=== PATIENT | male | born 1960 | race Caucasian/White ===

== ENCOUNTER 2025-10-10 14:29 | Outpatient (AMB) | payer OTHER, SELFPAY ==
--- NOTE | 2025-10-10 14:35 | MHC.OFFVIS ---
Vital Signs 10/10/25 14:44 Height 5 ft 7 in Weight 125 lb BMI 19.6 BP 169/93 H Blood Pressure Location Lt brachial Position Sitting Pulse 97 Intake Visit Reasons: residual hemorrhoidal skin tags. Intake Note: Patient presents for an assessment for residual hemorrhoidal skin tags. Pt c/o; Reports occasional rectal bleeding, reports no constipation, Hx bladder surgery, he has had x2 colonoscopy in the past in [place]. Manufacturer'S Representative Required: No Accompanied by: Self / Same As Patient Allergies BAND-AID Allergy (Severe, Uncoded 10/10/25 14:46) Unknown HPI HPI residual hemorrhoidal skin tags.: Details: 64-year-old male referred for hemorrhoids. He says that he has had hemorrhoids for about a year. He describes bleeding with this as as well as episodes of pain and discomfort. He says that his hemorrhoids also cause some significant itching. He says he does not feel that he is constipated. He also has a history of BPH. He is a long-time smoker. [facility] Medical History (Updated 10/10/25 @ 14:50 by Juan Jacobsen MD) Internal and external bleeding hemorrhoids Surgical History (Updated 10/10/25 @ 14:47 by IMTIAZ Copeland) History of colonoscopy History of transurethral resection of prostate Social History Alcohol intake: current Alcohol intake frequency: holidays/special occasions only Patient Tobacco Use Status: Current everyday Tobacco user Tobacco use type: Cigarette Cigarette Packs Per Day: 0.5 Review of Systems Const Denies chills and Denies fever(s) Card Denies chest pain, Denies dyspnea and Denies dyspnea on exertion Resp Denies cough, Denies dyspnea and Denies dyspnea on exertion GI Denies hematochezia and Denies change in bowel habits Denies hematuria and Denies difficulty urinating Musc Denies back pain and Denies limited range of motion Neuro Denies focal weakness and Denies convulsions Psych Denies depression and Denies mood swings Physical Exam Const General: comfortable and no acute distress Orientation/consciousness: patient oriented x3 Neck Neck: Yes no lymphadenopathy Resp Auscultation: clear to auscultation bilaterally Cardio Rhythm: regular rhythm GI Other: Rectal exam shows a large external hemorrhoid on the left posterior, no other perianal lesions Palpation (GI): Soft to palpation, nontender and no guarding Neuro General: patient oriented x3 Office Procedures Anoscopy He was in kneeling renetta-knife position. The anoscope was gently inserted. A full examination of the anal canal was done. Was note of a large internal external hemorrhoidal column on the left posterior. There were no other lesions seen. There was no fissure ulceration. There was no induration on digital exam. There was no bleeding. [id number] Assessment & Plan Assessment & Plan (1) Internal and external bleeding hemorrhoids: Code(s): K64.4 - Residual hemorrhoidal skin tags; K64.8 - Other hemorrhoids Category: Medical Plan: He has this large column of internal and external hemorrhoids as described above. He says he has bleeding and swelling and discomfort with this. I explained to him the option of proceeding with the appendectomy. I discussed the technique of this procedure. I reviewed the risks including but not limited to bleeding, infections, postop pain, poor healing, as well as the benefits and alternatives. I reviewed with him what to expect postoperatively. He says that he would like to take care of his BPH for now. He says that he will come back to the office once he is considering hemorrhoid surgery. I sent him a prescription for Calmoseptine to help with this itching in the meantime. Medications: New menthol-zinc oxide 0.44-20.6 % (Calmoseptine) 1 appl topical TID PRN 113 grams 0RF Hemorrhoid irritation and itching Coding Level of Care Code New Pt Level 3 (97606) Diagnoses Internal and external bleeding hemorrhoids K64.4; K64.8 CPT Codes Details - CPT: 96974-[id number] ([id number])
[2025-10-10 14:44] VITALS: BP 169/93; PULSE 97; BMI 19.6
--- OUTSIDE RECORDS SUMMARY | 2025-10-10 19:25 | XMS_ITS ---
BLOOD COUNT AUTO DIFF monocytes absolute auto 0.71 K/uL 0.4-1. 3 normal Not Available [facility] [address] [place] [address], [address], 07/30/2023 17:16:34 07/30/20 23 07/30/2023 COMPL ETE BLOOD COUNT AUTO DIFF eosinophils absolute auto 0.32 K/uL 0.0-0. 8 normal Not Available [facility] [address] [place] [address], [address], 07/30/2023 17:16:34 07/30/20 23 07/30/2023 COMPL ETE BLOOD COUNT AUTO DIFF basophils absolute auto 0.04 K/uL 0.0-0. 6 normal Not Available [facility] [address] [place] [address], [address], 07/30/2023 17:16:34 07/30/20 23 07/30/2023 VITAM IN B12 AND FOLAT E vitamin B12 600 pg/mL 232-12 45 normal Not Available [facility] [address] [place] [address], [address], 07/30/2023 17:52:26 07/30/20 23 07/30/2023 VITAM IN B12 AND FOLAT E folate 15.0 NG/mL 4.8-18 .8 normal Not Available [facility] [address] [place] [address], [address], 07/30/2023 17:52:26 07/30/20 23 07/30/2023 COMPR EHENS DREW MET. PANEL sodium 142 mmol/ L 136-14 5 normal Not Available [facility] [address] [place] [address], [address], 07/30/2023 17:52:28 07/30/20 23 07/30/2023 COMPR EHENS DREW MET. PANEL potassium 4.4 mmol/ L 3.5-5. 1 normal Not Available [facility] [address] [place] [address], [address], 07/30/2023 17:52:28 10/0607/30/2023 COMPR EHENS DREW MET. PANEL chloride 103 mmol/ L 98-107 normal Not Available [facility] [address] [place], [address], 07/30/2023 17:52:28 07/30/20 23 07/30/2023 COMPR EHENS DREW MET. PANEL carbon dioxide 27.0 mmol/ L 22-29 normal Not Available [facility] [address] [place], [address], 07/30/2023 17:52:28 07/30/20 23 07/30/2023 COMPR EHENS DREW MET. PANEL anion gap 16 mmol/ L 10-20 normal Not Available [facility] [address] [place], [address], 07/30/2023 17:52:28 07/30/20 23 07/30/2023 COMPR EHENS DREW MET. PANEL blood urea nitrogen 15 mg/dL 8-23 normal Not Available [facility] [address] [place], [address], 07/30/2023 17:52:28 07/30/20 23 07/30/2023 COMPR EHENS DREW MET. PANEL creatinine 1.11 mg/dL 0.70-1 .2 normal Not Available [facility] [address] [place], [address], 07/30/2023 17:52:28 07/30/20 23 07/30/2023 COMPR EHENS DREW MET. PANEL estimated glomerular filt rate 74 GFR Value : mL/mi n/1.7 3 squar e meter s Calcu latio n: CKD-E PI Creat inine Equat ion (2020 ) Chron ic Kidkenneth y Disea se is defin ed as eithe r of the follo wing prese nt for >= 3 month s: - GFR less than 60 mL/mi n/1.7 3 squar e meter s. - Micro album in:Ur . Creat inine Ratio >= 30 mg/g or other marke rs of trell mederos e Kidkenneth y failu re is less than 15 mL/mi n/1.7 3 squar e meter s This test is not perfo rmed in patie nts under the age of 18. Not Available [facility] [address] [place], [address], 07/30/2023 17:52:28 07/30/20 23 07/30/2023 COMPR EHENS DREW MET. PANEL glucose 73 mg/dL 82-115 low Not Available [facility] [address] [place], [address], 07/30/2023 17:52:28 07/30/20 23 07/30/2023 COMPR EHENS DREW MET. PANEL calcium 10.2 mg/dL 8.8-10 .2 normal Not Available [facility] [address] [place], [address], 07/30/2023 17:52:28 07/30/20 23 07/30/2023 COMPR EHENS DREW MET. PANEL bilirubin total 0.3 mg/dL 0.2-1. 2 normal Not Available [facility] [address] [place], [address], 07/30/2023 17:52:28 07/30/20 23 07/30/2023 COMPR EHENS DREW MET. PANEL aspartate amino transferase 19 U/L 5-40 normal Not Available [facility] [address] [place], [address], 07/30/2023 17:52:28 07/30/20 23 07/30/2023 COMPR EHENS DREW MET. PANEL alanine aminotransfe rase 14 U/L 5-41 normal Not Available [facility] [address] [place], [address], 07/30/2023 17:52:28 07/30/20 23 07/30/2023 COMPR EHENS DREW MET. PANEL total protein 7.1 g/dL 6.4-8. 3 normal Not Available [facility] [address] [place], [address], 07/30/2023 17:52:28 07/30/20 23 07/30/2023 COMPR EHENS DREW MET. PANEL albumin level 4.6 g/dL 3.5-5. 2 normal Not Available [facility] [address] [place], [address], 07/30/2023 17:52:28 07/30/20 23 07/30/2023 COMPR EHENS DREW MET. PANEL globulin 2.5 gm/dL 2.0-3. 5 normal Not Available [facility] [address] [facility] [place], [address], 07/30/2023 17:52:28 07/30/2007/30/2023 COMPR EHENS DREW MET. PANEL albumin globulin ratio 1.8 % 1.1-2. 5 normal Not Available [facility] [address] [place], [address], 07/30/2023 17:52:28 07/30/20 23 07/30/2023 COMPR EHENS DREW MET. PANEL alkaline phosphatase 105 U/L 40-129 normal Not Available [facility] [address] [place], [address], 07/30/2023 17:52:28 07/30/20 23 07/30/2023 MAGNE SIUM magnesium 2.17 mg/dL 1.6-2. 4 normal Not Available [facility] [address] [place], [address], 07/30/2023 17:52:28 07/30/2007/30/2023 IRON PROFI LE iron 122.3 ug/dL 59-158 normal Not Available [facility] [address] [place], [address], 07/30/2023 17:52:29 07/30/2007/30/2023 IRON PROFI LE total iron binding capacity 360.0 ug/dL 250-45 0 normal Not Available [facility] [address] [place], [address], 07/30/2023 17:52:29 07/30/20 23 07/30/2023 IRON PROFI LE transferrin 252 mg/dL 200-36 0 normal Not Available [facility] [address] [place] [address], [address], 07/30/2023 17:52:29 07/30/20 23 07/30/2023 IRON PROFI LE transferrin percent saturation 34 % 20-50 normal Not Available [facility] [address] [place], [address], 07/30/2023 17:52:29 07/30/20 23 07/30/2023 TSH REFLE X FREE T4 TSH reflex free T4 0.48 uIU/m L 0.27-4 .20 normal Not Available [facility] [address] [place] [address], [address], 07/30/2023 17:52:29 07/30/20 23 07/30/2023 VITAM IN D 25-OH TOTAL vitamin D 25-oh total 80.5 NG/mL Refer ence Range : Defic ient <20 ng/mL Insuf ficie nt 21-29 ng/mL Suffi cient >30 ng/mL Not Available [facility] [address] [place] [address], [address], 07/30/2023 17:54:02 07/30/20 23 07/31/2023 LYME DIS TOTAL AB W/ REFLE X lyme total antibody meaghan Negati ve negati ve Lyme antib odies not detec yehuda. Refle x testi ng is not indic ated. No labor atory evide nce of infec tion with B. burgd orfer i (Lyme disea se). Negat drew resul ts may occur in patie nts recen tly infec yehuda (less than or equal to 14 days) with B. burgd orfer i. If recen t infec tion is suspe cted, repea t testi ng on a new sampl e colle cted in 7 to 14 days is recom bhavik Bender rmed at: 01 - [facility] [place] [address], [place] [address] Lab Direc tor: Serena Cruz MD, Phone : [phone] Not Available [facility] [address] [facility], [place], [address], 07/31/2023 12:08:24 07/30/20 23 07/30/2023 URINE CULTU RE results ----- ----- ----- ----- ----- ----- ----- ----- ----- ----- ----- ----- ----- ----- ----- ----- ----- ----- -- RUN DATE: 08/01 Katie hester *Live * - LAB PAGE 1 RUN TIME: 658 Speci men Inqui ry ----- ----- ----- ----- ----- ----- ----- ----- ----- ----- ----- ----- ----- ----- ----- ----- ----- ----- -- PATIE NT: Chelsey Souza ACCT: [id number] LOC: .DO Martinez U: [id number] AGE/S X: 62/M ROOM: RE07/[address]: Nury Colon : 11/26 BED: DIS: STATU S: PRE CLI TLOC: ----- ----- ----- ----- ----- ----- ----- ----- ----- ----- ----- ----- ----- ----- ----- ----- ----- ----- -- SPEC #: [id number] CAIT: 07/30-1 340 STATU S: COMP REQ #: [id number] RECD: 07/30- [address]: Nury Colon [facility] E: Patrick oreilly ENTR: 07/[address]: LEIF C: ORDER ED: Urine Cultu re ACT WKST: CULT 08/01 #1 ----- ----- ----- ----- ----- ----- ----- ----- ----- ----- ----- ----- ----- ----- ----- ----- ----- ----- -- Proce dure Resul t ----- ----- ----- ----- ----- ----- ----- ----- ----- ----- ----- ----- ----- ----- ----- ----- ----- ----- -- Urine Cultu re Final Colon y Count : <1,00 0 col/m L No Growt h ----- ----- ----- ----- ----- ----- ----- ----- ----- ----- ----- ----- ----- ----- ----- ----- ----- ----- -- END OF REPOR T Not Available [facility] [address] [place], [address], 08/01/2023 06:59:14 07/30/2007/30/2023 urina lysis , dipst ick Leukocytes Negati ve Not Available [facility] [address] [facility], [place], [address], 07/30/2023 09:19:09 07/30/2007/30/2023 urina lysis , dipst ick Nitrite negati ve Not Available [address] [place], [address], 07/30/2023 09:19:09 07/30/2007/30/2023 urina lysis , dipst ick Urobilinogen 0.2 Not Available Andriy maynard [address] [place], [address], 07/30/2023 09:19:09 07/30/2007/30/2023 urina lysis , dipst ick Protein Negati ve Not Available [address] [place], [address], 07/30/2023 09:19:09 07/30/2007/30/2023 urina lysis , dipst ick pH 5.0 Not Available [address] [place], [address], 07/30/2023 09:19:09 07/30/2007/30/2023 urina lysis , dipst ick Blood Negati ve Not Available [address] [place], [address], 07/30/2023 09:19:09 07/30/2007/30/2023 urina lysis , dipst ick Specific [place] 1.015 Not Available Genetar radha [address] [place], [address], 07/30/2023 09:19:09 07/30/2007/30/2023 urina lysis , dipst ick Ketone Negati ve Not Available [address] [place], [address], 07/30/2023 09:19:09 07/30/2007/30/2023 urina lysis , dipst ick Bilirubin Negati ve Not Available [address] [place], [address], 07/30/2023 09:19:09 07/30/20 23 07/30/2023 urina lysis , dipst ick Glucose Negati ve Not Available [address], [place], [address], 07/30/2023 09:19:09 01/27/20 24 01/27/2024 COMPR EHENS DREW MET. PANEL sodium 139 mmol/ L 136-14 5 normal Not Available [facility] [address] [place], [address], 01/27/2024 17:01:21 01/27/20 24 01/27/2024 COMPR EHENS DREW MET. PANEL potassium 4.59 mmol/ L 3.5-5. 1 normal Not Available [facility] [address] [place], [address], 01/27/2024 17:01:21 01/27/20 24 01/27/2024 COMPR EHENS DREW MET. PANEL chloride 100 mmol/ L 98-107 normal Not Available [facility] [address] [place], [address], 01/27/2024 17:01:21 01/27/20 24 01/27/2024 COMPR EHENS DREW MET. PANEL carbon dioxide 29 mmol/ L 22-29 normal Not Available [facility] [address] [place], [address], 01/27/2024 17:01:21 01/27/20 24 01/27/2024 COMPR EHENS DREW MET. PANEL anion gap 15 mmol/ L 10-20 normal Not Available [facility] [address] [place], [address], 01/27/2024 17:01:21 01/27/20 24 01/27/2024 COMPR EHENS DREW MET. PANEL blood urea nitrogen 20 mg/dL 8-23 normal Not Available [facility] [address] [place], [address], 01/27/2024 17:01:21 01/27/20 24 01/27/2024 COMPR EHENS DREW MET. PANEL creatinine 1.10 mg/dL 0.67-1 .17 normal Not Available [facility] [address] [place], [address], 01/27/2024 17:01:21 01/27/20 24 01/27/2024 COMPR EHENS DREW MET. PANEL estimated glomerular filt rate 74 GFR Value : mL/mi n/1.7 3 squar e meter s Calcu latio n: CKD-E PI Creat inine Equat ion (2020 ) Chron ic Kidne y Disea se is defin ed as eithe r of the follo wing prese nt for >= 3 month s: - GFR less than 60 mL/mi n/1.7 3 squar e meter s. - Micro album in:Ur . Creat inine Ratio >= 30 mg/g or other marke rs of kidne y damag e Kidne y failu re is less than 15 mL/mi n/1.7 3 squar e meter s This test is not perfo rmed in patie nts under the age of 18. Not Available [facility] [address] [place], [address], 01/27/2024 17:01:21 01/27/20 24 01/27/2024 COMPR EHENS DREW MET. PANEL glucose 95 mg/dL 82-115 normal Not Available [facility] [address] [place], [address], 01/27/2024 17:01:21 01/27/20 24 01/27/2024 COMPR EHENS DREW MET. PANEL calcium 10.0 mg/dL 8.8-10 .2 normal Not Available [facility] [address] [place], [address], 01/27/2024 17:01:21 01/27/20 24 01/27/2024 COMPR EHENS DREW MET. PANEL bilirubin total 0.5 mg/dL 0.2-1. 2 normal Not Available [facility] [address] [place], [address], 01/27/2024 17:01:21 01/27/20 24 01/27/2024 COMPR EHENS DREW MET. PANEL aspartate amino transferase 22 U/L 5-40 normal Not Available [facility] [address] [place], [address], 01/27/2024 17:01:21 01/27/20 24 01/27/2024 COMPR EHENS DREW MET. PANEL alanine aminotransfe rase 17 U/L 5-41 normal Not Available [facility] [address] [place], [address], 01/27/2024 17:01:21 01/27/20 24 01/27/2024 COMPR EHENS DREW MET. PANEL total protein 7.2 g/dL 6.4-8. 3 normal Not Available [facility] [address] [place], [place] [address], [address], 01/27/2024 17:01:21 01/27/20 24 01/27/2024 COMPR EHENS DREW MET. PANEL albumin level 4.4 g/dL 3.5-5. 2 normal Not Available [facility] [address] [place], [address], 01/27/2024 17:01:21 01/27/20 24 01/27/2024 COMPR EHENS DREW MET. PANEL globulin 2.8 gm/dL 2.0-3. 5 normal Not Available [facility] [address] [place], [address], 01/27/2024 17:01:21 01/27/20 24 01/27/2024 COMPR EHENS DREW MET. PANEL albumin globulin ratio 1.6 % 1.1-2. 5 normal Not Available [facility] [address] [place], [address], 01/27/2024 17:01:21 01/27/20 24 01/27/2024 COMPR EHENS DREW MET. PANEL alkaline phosphatase 106 U/L 40-129 normal Not Available [facility] [address] [place], [address], 01/27/2024 17:01:21 01/27/20 24 01/27/2024 LIPID PANEL WITH REFLE X triglyceride s 88 mg/dL 30-150 normal Refer ence Range s: <150 mg/dl Mary l 150-1 99 mg/dl Borde rline High 200-4 99 mg/dl High >500 mg/dl Very High Not Available [facility] [address] [place] [address], [address], 01/27/2024 17:01:22 01/27/20 24 01/27/2024 LIPID PANEL WITH REFLE X cholesterol 269 mg/dL 100-20 0 high Not Available [facility] [address] [place] [address], [address], 01/27/2024 17:01:22 01/27/20 24 01/27/2024 LIPID PANEL WITH REFLE X LDL cholesterol direct TNP mg/dL 0-100 Not Available [facility] [address] [place] [address], [address], 01/27/2024 17:01:22 01/27/20 24 01/27/2024 LIPID PANEL WITH REFLE X LDL cholesterol calculated 151.0 mg/dL 0-100 high Natio nal [employer] Educa tion Progr am sugge sts the follo wing refer ence range : Optim al <100 mg/dL Near optim al/ab ove optim al 100-1 29 mg/dL Borde rline high 130-1 59 mg/dL High 160-1 89 mg/dL Very high >190 mg/dL Not Available [facility] [address] [place] [address], [address], 01/27/2024 17:01:22 01/27/20 24 01/27/2024 LIPID PANEL WITH REFLE X HDL cholesterol 99.9 mg/dL 40-60 high Major risk facto r for CHD: <40 mg/dL Negat drew risk facto r for CHD: >=60 mg/dL Not Available [facility] [address] [place] [address], [address], 01/27/2024 17:01:22 01/27/20 24 01/27/2024 LIPID PANEL WITH REFLE X chol HDL ratio 2.69 Risk CHOL/ HDL CHOL/ HDL Ratio Male Femal e 1/2 AVERA GE 3.43 3.27 AVERA GE 4.97 4.44 2 X AVERA GE 9.55 7.05 3 X AVERA GE 23.39 11.04 Not Available [facility] [address] [place] [address], [address], 01/27/2024 17:01:22 02/16/20 24 02/16/2024 BASIC METAB OLIC PANEL sodium 141 mmol/ L 136-14 5 normal Not Available [facility] [address] [place] [address], [address], 02/16/2024 16:59:38 02/16/20 24 02/16/2024 BASIC METAB OLIC PANEL potassium 4.82 mmol/ L 3.5-5. 1 normal Not Available [facility] [address] [place] [address], [address], 02/16/2024 16:59:38 02/16/20 24 02/16/2024 BASIC METAB OLIC PANEL chloride 103 mmol/ L 98-107 normal Not Available [facility] [address] [place] [address], [address], 02/16/2024 16:59:38 02/16/20 24 02/16/2024 BASIC METAB OLIC PANEL carbon dioxide 29 mmol/ L 22-29 normal Not Available [facility] [address] [place] [address], [address], 02/16/2024 16:59:38 02/16/20 24 02/16/2024 BASIC METAB OLIC PANEL anion gap 14 mmol/ L 10-20 normal Not Available [facility] [address] [place] [address], [address], 02/16/2024 16:59:38 02/16/20 24 02/16/2024 BASIC METAB OLIC PANEL blood urea nitrogen 23 mg/dL 8-23 normal Not Available [facility] [address] [place], [address], 02/16/2024 16:59:38 02/16/20 24 02/16/2024 BASIC METAB OLIC PANEL creatinine 1.08 mg/dL 0.67-1 .17 normal Not Available [facility] [address] [place], [address], 02/16/2024 16:59:38 02/16/20 24 02/16/2024 BASIC METAB OLIC PANEL estimated glomerular filt rate 76 GFR Value : mL/mi n/1.7 3 squar e meter s Calcu latio n: CKD-E PI Creat inine Equat ion (2020 ) Chron ic Kidne y Disea se is defin ed as eithe r of the follo wing prese nt for >= 3 month s: - GFR less than 60 mL/mi n/1.7 3 squar e meter s. - Micro album in:Ur . Creat inine Ratio >= 30 mg/g or other marke rs of trell y damag e Kidne y failu re is less than 15 mL/mi n/1.7 3 squar e meter s This test is not perfo rmed in patie nts under the age of 18. Not Available [facility] [address] [place], [address], 02/16/2024 16:59:38 02/16/20 24 02/16/2024 BASIC METAB OLIC PANEL glucose 100 mg/dL 82-115 normal Not Available [facility] [address] [place], [address], 02/16/2024 16:59:38 02/16/20 24 02/16/2024 BASIC METAB OLIC PANEL calcium 10.3 mg/dL 8.8-10 .2 high Not Available [facility] [address] [place], [address], 02/16/2024 16:59:38 01/30/20 25 01/29/2025 COMPR EHENS DREW MET. PANEL sodium 139 mmol/ L 136-14 5 normal Not Available [facility] [address] [place], [address], 01/29/2025 18:16:23 01/30/20 25 01/29/2025 COMPR EHENS DREW MET. PANEL potassium 4.8 mmol/ L 3.5-5. 1 normal Not Available [facility] [address] [place], [address], 01/29/2025 18:16:23 01/30/20 25 01/29/2025 COMPR EHENS DREW MET. PANEL chloride 101 mmol/ L 98-107 normal Not Available [facility] [address] [place], [address], 01/29/2025 18:16:23 01/30/20 25 01/29/2025 COMPR EHENS DREW MET. PANEL carbon dioxide 25 mmol/ L 22-29 normal Not Available [facility] [address] [place], [address], 01/29/2025 18:16:23 01/30/20 25 01/29/2025 COMPR EHENS DREW MET. PANEL anion gap 17 mmol/ L 10-20 normal Not Available [facility] [address] [place], [address], 01/29/2025 18:16:23 01/30/20 25 01/29/2025 COMPR EHENS DREW MET. PANEL blood urea nitrogen 19 mg/dL 8-23 normal Not Available [facility] [address] [place], [address], 01/29/2025 18:16:23 01/30/20 25 01/29/2025 COMPR EHENS DREW MET. PANEL creatinine 0.97 mg/dL 0.67-1 .17 normal Not Available [facility] [address] [place], [address], 01/29/2025 18:16:23 01/30/20 25 01/29/2025 COMPR EHENS DREW MET. PANEL estimated glomerular filt rate 86 GFR Value : mL/mi n/1.7 3 squar e meter s Calcu latio n: CKD-E PI Creat inine Equat ion (2020 ) Chron ic Kidne y Disea se is defin ed as eithe r of the follo wing prese nt for >= 3 month s: - GFR less than 60 mL/mi n/1.7 3 squar e meter s. - Micro album in:Ur . Creat inine Ratio >= 30 mg/g or other marke rs of kidne y damag e Kidne y failu re is less than 15 mL/mi n/1.7 3 squar e meter s This test is not perfo rmed in patie nts under the age of 18. Not Available [facility] [address] [place], [address], 01/29/2025 18:16:23 01/30/20 25 01/29/2025 COMPR EHENS DREW MET. PANEL glucose 96 mg/dL 82-115 normal Not Available [facility] [address] [place], [address], 01/29/2025 18:16:23 01/30/20 25 01/29/2025 COMPR EHENS DREW MET. PANEL calcium 9.9 mg/dL 8.8-10 .2 normal Not Available [facility] [address] [place], [address], 01/29/2025 18:16:23 01/30/20 25 01/29/2025 COMPR EHENS DREW MET. PANEL bilirubin total 0.3 mg/dL 0.2-1. 2 normal Not Available [facility] [address] [place], [address], 01/29/2025 18:16:23 01/30/20 25 01/29/2025 COMPR EHENS DREW MET. PANEL aspartate amino transferase 26 U/L 5-40 normal Not Available [facility] [address] [place], [address], 01/29/2025 18:16:23 01/30/20 25 01/29/2025 COMPR EHENS DREW MET. PANEL alanine aminotransfe rase 21 U/L 5-41 normal Not Available [facility] [address] [place], [address], 01/29/2025 18:16:23 01/30/20 25 01/29/2025 COMPR EHENS DREW MET. PANEL total protein 6.9 g/dL 6.4-8. 3 normal Not Available [facility] [address] [place], [address], 01/29/2025 18:16:23 01/30/20 25 01/29/2025 COMPR EHENS DREW MET. PANEL albumin level 4.4 g/dL 3.5-5. 2 normal Not Available [facility] [address] [place], [address], 01/29/2025 18:16:23 01/30/20 25 01/29/2025 COMPR EHENS DREW MET. PANEL globulin 2.5 gm/dL 2.0-3. 5 normal Not Available [facility] [address] [place], [address], 01/29/2025 18:16:23 01/30/20 25 01/29/2025 COMPR EHENS DREW MET. PANEL albumin globulin ratio 1.8 % 1.1-2. 5 normal Not Available [facility] [address] [place], [address], 01/29/2025 18:16:23 01/30/20 25 01/29/2025 COMPR EHENS DREW MET. PANEL alkaline phosphatase 97 U/L 40-129 normal Not Available [facility] [address] [place], [address], 01/29/2025 18:16:23 01/30/20 25 01/29/2025 MAGNE SIUM magnesium 2.30 mg/dL 1.6-2. 4 normal Not Available [facility] [address] [place], [address], 01/29/2025 18:16:24 01/30/20 01/29/2025 LIPID PANEL WITH REFLE X triglyceride s 60 mg/dL 30-150 normal Refer ence Range s: <150 mg/dl Mary l 150-1 99 mg/dl Borde rline High 200-4 99 mg/dl High >500 mg/dl Very High Not Available [facility] [address] [place], [address], 01/29/2025 18:16:24 01/30/20 25 01/29/2025 LIPID PANEL WITH REFLE X cholesterol 240 mg/dL 100-20 0 high Not Available [facility] [address] [place], [address], 01/29/2025 18:16:24 01/30/20 25 01/29/2025 LIPID PANEL WITH REFLE X LDL cholesterol direct TNP mg/dL 0-100 Not Available [facility] [address] [place], [address], 01/29/2025 18:16:24 01/30/20 25 01/29/2025 LIPID PANEL WITH REFLE X LDL cholesterol calculated 126.0 mg/dL 0-100 high Natio nal [employer] Educa tion Progr am sugge sts the [employer] refer ence range : Optim al <100 mg/dL Near optim al/ab ove optim al 100-1 29 mg/dL Borde rline high 130-1 59 mg/dL High 160-1 89 mg/dL Very high >190 mg/dL Not Available [facility] [address] [place], [address], 01/29/2025 18:16:24 01/30/20 25 01/29/2025 LIPID PANEL WITH REFLE X HDL cholesterol 102.0 mg/dL 40-60 high Major risk facto r for CHD: <40 mg/dL Negat drew risk facto r for CHD: >=60 mg/dL Not Available [facility] [address] [place], [address], 01/29/2025 18:16:24 01/30/20 25 01/29/2025 LIPID PANEL WITH REFLE X chol HDL ratio 2.35 Risk CHOL/ HDL CHOL/ HDL Ratio Male Femal e 1/2 AVERA GE 3.43 3.27 AVERA GE 4.97 4.44 2 X AVERA GE 9.55 7.05 3 X AVERA GE 23.39 11.04 Not Available [facility] [address] [place], [address], 01/29/2025 18:16:24 01/30/20 25 01/29/2025 PROST ATE SPECI FIC ANTIG EN SCR prostate specific antigen scr 0.63 NG/mL 0-4.0 normal Imelda Diagn ostic s Elect imelda milum inesc ence Immun oassa y (ECLI A) Value s obtai rohan with diffe rent assay metho ds or kits canno t be used inter arellano eably . Resul ts canno t be inter prete d as absol missael evide nce of the prese nce or absen ce of evon benson se. Not Available [facility] [address] [place], [address], 01/29/2025 18:20:27 01/30/20 25 01/29/2025 VITAM IN D 25-OH TOTAL vitamin D 25-oh total 80.2 NG/mL Refer ence Range : Defic ient <20 ng/mL Insuf ficie nt 21-29 ng/mL Suffi cient >30 ng/mL Not Available [facility] [address] [place], [address], 01/29/2025 18:30:43 01/30/20 25 01/29/2025 COMPL ETE BLOOD COUNT AUTO DIFF white blood count 9.62 K/uL 3.5-11 .0 normal Not Available [facility] [address] [place], [address], 01/29/2025 20:16:34 01/30/20 25 01/29/2025 COMPL ETE BLOOD COUNT AUTO DIFF red blood count 5.36 M/uL 3.90-5 .50 normal Not Available [facility] [address] [place], [address], 01/29/2025 20:16:34 01/30/20 25 01/29/2025 COMPL ETE BLOOD COUNT AUTO DIFF hemoglobin 16.5 g/dL 14.0-1 8.0 normal Not Available [facility] [address] [place] [address], [address], 01/29/2025 20:16:34 01/30/20 25 01/29/2025 COMPL ETE BLOOD COUNT AUTO DIFF hematocrit 49.1 % 42.0-5 4.0 normal Not Available [facility] [address] [place] [address], [id number], 01/29/2025 20:16:34 01/30/20 25 01/29/2025 COMPL ETE BLOOD COUNT AUTO DIFF mean corpuscular volume 91.6 fL 80.0-1 00.0 normal Not Available [facility] [address] [place] [address], [id number], 01/29/2025 20:16:34 01/30/20 25 01/29/2025 COMPL ETE BLOOD COUNT AUTO DIFF mean corpuscular hemoglobin 30.8 pg 25.4-3 4.6 normal Not Available [facility] [address] [place] [address], [id number], 01/29/2025 20:16:34 01/30/20 25 01/29/2025 COMPL ETE BLOOD COUNT AUTO DIFF mean corpuscular HGB conc 33.6 g/dL 31.0-3 7.0 normal Not Available [facility] [address] [place] [address], [id number], 01/29/2025 20:16:34 01/30/20 25 01/29/2025 COMPL ETE BLOOD COUNT AUTO DIFF red cell distribution width 12.7 % 11.5-1 4.5 normal Not Available [facility] [address] [place] [address], [id number], 01/29/2025 20:16:34 01/30/20 25 01/29/2025 COMPL ETE BLOOD COUNT AUTO DIFF platelet count 299 K/uL 150-40 0 normal Not Available [facility] [address] [place] [address], [address], 01/29/2025 20:16:34 01/30/20 25 01/29/2025 COMPL ETE BLOOD COUNT AUTO DIFF neutrophils percent auto 71.4 % 35.0-6 6.0 high Not Available [facility] [address] [place] [address], [address], 01/29/2025 20:16:34 01/30/20 25 01/29/2025 COMPL ETE BLOOD COUNT AUTO DIFF imm gran pct auto 0.3 % 0.0-0. 6 normal Not Available [facility] [address] [place] [address], [id number], 01/29/2025 20:16:34 01/30/20 25 01/29/2025 COMPL ETE BLOOD COUNT AUTO DIFF lymphocytes percent auto 16.9 % 25.0-4 5.0 low Not Available [facility] [address] [place] [address], [address], 01/29/2025 20:16:34 01/30/20 25 01/29/2025 COMPL ETE BLOOD COUNT AUTO DIFF monocytes percent auto 8.7 % 0.0-13 .0 normal Not Available [facility] [address] [place] [address], [address], 01/29/2025 20:16:34 01/30/20 25 01/29/2025 COMPL ETE BLOOD COUNT AUTO DIFF eosinophils percent auto 2.5 % 0.0-8. 0 normal Not Available [facility] [address] [place] [address], 58[address], 01/29/2025 20:16:34 01/30/20 25 01/29/2025 COMPL ETE BLOOD COUNT AUTO DIFF basophils percent auto 0.2 % 0.0-1. 0 normal Not Available [facility] [address] [place] [address], [id number], 01/29/2025 20:16:34 01/30/20 25 01/29/2025 COMPL ETE BLOOD COUNT AUTO DIFF NRBC pct auto 0.0 /100_ WBC 0.0 normal Not Available [facility] [address] [place] [address], 39[address], 01/29/2025 20:16:34 01/30/20 25 01/29/2025 COMPL ETE BLOOD COUNT AUTO DIFF neutrophils absolute auto 6.86 K/uL 1.5-7. 5 normal Not Available [facility] [address] [place] [address], [id number], 01/29/2025 20:16:34 01/30/20 25 01/29/2025 COMPL ETE BLOOD COUNT AUTO DIFF imm gran abs auto 0.03 K/uL 0.00-0 .09 normal Not Available [facility] [address] [place] [address], 268[address], 01/29/2025 20:16:34 01/30/20 25 01/29/2025 COMPL ETE BLOOD COUNT AUTO DIFF lymphocytes absolute auto 1.63 K/uL 0.8-4. 8 normal Not Available [facility] [address] [place] [address], 28619, 01/29/2025 20:16:34 01/30/20 25 01/29/2025 COMPL ETE BLOOD COUNT AUTO DIFF monocytes absolute auto 0.84 K/uL 0.4-1. 3 normal Not Available [facility] [address] [place] [address], [address], 01/29/2025 20:16:34 01/30/20 25 01/29/2025 COMPL ETE BLOOD COUNT AUTO DIFF eosinophils absolute auto 0.24 K/uL 0.0-0. 8 normal Not Available [facility] [address] [place] [address], [address], 01/29/2025 20:16:34 01/30/20 25 01/29/2025 COMPL ETE BLOOD COUNT AUTO DIFF basophils absolute auto 0.02 K/uL 0.0-0. 6 normal Not Available [facility] [address] [place] [address], 51721, 01/29/2025 20:16:34 01/30/20 25 01/29/2025 COMPL ETE BLOOD COUNT AUTO DIFF NRBC abs auto 0.00 K/uL 0.00 normal Not Available [facility] [address] [facility], [place], [address], 01/29/2025 20:16:34 03/10/20 24 03/10/2024 LDCT, chest , for lung elvia dumont [facility] [address] [place] [address] CT Scan Report Signed Shaylee t: Bonita Pretty on K MR#: [id number] : 1960 Acct:H [id number] Age/Se x: 63 / M ADM Date: Loc: HE.CT Attend ing Dr: Tenisha box Physic davis: Tenisha GUZMAN Date of Servic e: Proced ure(s) : CT lung screen ing Access ion Number (s): [id number] H cc: Luciana Colon DO EXAM: CT lung screen ing CLINIC AL INDICA TION: Lung cancer screen ing study. Greate r than 30-pac k-year tobacc o smokin g histor y, curren t smoker or has quit within the past 15 years. No signs or sympto ms of lung cancer . Has partic ipated in lung cancer screen ing counse theo prior to CT. TECHNI QUE: Non-ga yehuda CT of the chest was perfor med withou t contra st using depart mental low dose CT lung cancer screen ing protoc ol. Multip lanar reform ats genera yehuda. 3D maximu m intens ity projec tion (MIP) images genera yehuda on the same workst ation under concur rent physic davis superv ision. Automa yehuda exposu re contro l dose reduct ion techni que utiliz ed. Lung-R ADS is used to classi fy findin gs, and is a classi ficati on propos ed aid with findin gs in low dose CT screen ing exams for lung cancer , with the goal to standa rdized follow up and manage ment decisi ons. For more inform ation, visit: http:/ /www.a cr.org /Quali ty-Saf ety/Re source s/Lung RADS COMPAR TRACY: CT chest March 08, 2023 FINDIN GS: Image qualit y, sensit ivity for detect ion of pathol ogy, and specif icity of findin gs reduce d by imagin g artifa cts due to low-do se techni que. Nodule s (solid and measur ed in axial plane unless otherw ise specif ied, and may be marked on MIP images ): Stable 2 mm nodule right upper lobe axial image 47 series 3 Emphys ematou s change s: Mild. Bronch iectas is: Absent . Bronch itis: Absent . Pleura l effusi ons: Absent . Pneumo thorax : Absent . Endolu alex airway lesion s: Absent . Other findin gs: Slight ly elevat ed right hemidi aphrag m. Focal scarri ng in lungs. Medias tinum and theresa: No interv al adenop athy. Heart: No cardio megaly or perica rdial effusi on Duran ry artery calcif icatio ns (subje ctive/ qualit ative assess ment): Modera te Pulmon jose vascul ature: Nondil ated. Thorac ic aorta: Nondil ated. Bones and soft tissue s: Diffus e degene rative change s thorac ic spine. Visual ized Abdome n: None Electr onical ly Signed in [place] cribe By Rosendo Hdz MD 033 CT/CT lung screen ing IMPRES YANNI: LUNG-R ADS Catego ry 2 (benig n appear ance or behavi or, less than 1 percen t chance of malign marylou and very low likeli woodard of becomi ng a clinic ally active cancer ). Small stable right upper lobe pulmon jose nodule . Recomm end contin ued annual screen ing with low-do se chest CT, assumi ng patien t contin ues to meet screen ing criter ia. Other potent ially import ant findin gs: 1. Mild bilate ral pulmon jose emphys ematou s change s. 2. Modera te duran ry artery calcif icatio ns Additi onal findin gs as above. Dictat ed By: Rosendo Hdz MD Signed By: 1324 DD/DT: 1301 TD/TT: 1311 Transc riptio nist: [facility] (Central Scheduling) [address] , [place], [place], [address], 03/20/2024 13:58:43 05/25/20 25 05/25/2025 LDCT, chest , [facility] [address] . [place], [place] [address] CT Scan Report Signed Patien t: Maria De JesusBonita on K MR#: [id number] : 1960 Acct:H [id number] Age/Se x: 64 / M ADM Date: Loc: HE.CT Attend ing Dr: Tenisha box Physic davis: Tenisha GUZMAN Date of Servic e: Proced ure(s) : CT lung screen ing Access ion Number (s): [id number] H cc: Luciana Drake n Gemma Maria De Jesus , : [birth year] DATE: 05/25/20 25 1:02 PM STUDY: CT lung screen ing CLINIC AL INDICA TION: 64 years old male with long-t erm smokin g histor y ORDERI NG PROVID ER: MEGAN Singletary COMPAR TRACY: 024. TECHNI QUE: Noncon trast, helica l, low-do se CT (LDCT) chest per standa rd depart mental protoc ol. Duran l and sagitt al reform atted images provid ed and review ed. LUNG SCREEN ING SPECIF ICS (LUNG- RADS): None POTENT IALLY SIGNIF ICANT INCIDE NTALS (LUNG- RADS Catego ry S): Tiny 3 mm solid pleura l-base d nodule stable in the periph elizabeth of the right upper lobe.. Lungs are otherw ise clear. No new, enlarg ing or suspic ious pulmon jose nodule s. PULMON JOSE INCIDE NTALS: OTHER INCIDE NTALS: Small amount of debris seen in the trache a at the thorac ic inlet. Airway s otherw ise patent . No abnorm ality seen in the thorac ic esopha david. Normal size heart. Short segmen t calcif ied plaque in the LAD. Mild calcif ied plaque along the unders urface of tortuo us thorac ic aorta. Thorac ic aorta otherw ise unrema rkable .. No medias tinal, hilar or axilla ry lympha denopa thy. Partia lly visual ized upper abdomi nal viscer a and vascul ature demons trates stable small low attenu ating nodule in the left hepati c lobe, fluid attenu ating. Additi onal tiny low attenu ating lesion seen more latera lly and superi gbaby. Nonsus piciou s. Small low attenu ating nodule abutti ng the capsul e and the right hepati c lobe, fluid densit y. 1 cm. Partia lly visual ized upper abdomi nal viscer a and vascul ature are otherw ise unrema rkable . 035 CT/CT lung screen ing IMPRES YANNI: 1. LUNG-R ADS: 2-HUGH GN: Nodule s with a very low likeli woodard of becomi ng a clinic ally active cancer , due to size or lack of growth . 2. LUNG RADS Catego ry S: Negati ve: No new/un known potent ially signif icant incide ntal findin gs requir ing urgent additi onal evalua tion. 3. Small amount of aspira yehuda debris versus retain ed secret ions in the trache a. RECOMM ENDATI ONS: 1. Annual screen ing mammog bairon is recomm ended. If you are a curren t smoker , we recomm end smokin g cessat ion as soon as possib le. Electr onical ly Signed By: Al kwan DO On: 1341 Dictat ed By: Al kwan DO 1302 Signed By: Al kwan DO 1341 [email or web address] [facility] (Central Scheduling) [address] [place] [address], [place], [address], 06/11/2025 13:27:55 06/06/20 25 05/25/2025 LDCT, chest , for lung [facility] [address] [facility] [place] [address] CT Scan Report Signed with Renetta June t: Bonita Pretty MR#: [id number] : 1960 Acct:H [id number] Age/Se x: 64 / M ADM Date: Loc: HE.CT Attend ing Dr: Tenisha GUZMAN Orderpapo ng Physic davis: Tenisha GUZMAN Date of Servic e: Proced ure(s) : CT lung screen ing Access ion Number (s): [id number] H cc: Luciana Colon DO ADDE NDUM Please see below for report change s. 1 cm low densit y nodule in the liver has featur es of either cyst or parvin ioma, not suspic ious. Recomm endati ons: Annual screen ing low-do se CT chest. Report remain s otherw ise kimberly arteaga. Addend um Dictat ed By: Al kwan DO Addend um Signed By: Al kwan DO i?? i?? i?? i?? i?? i?? i?? i?? i?? i?? i?? i?? i?? i?? i?? i?? i?? i?? i?? i?? i?? i?? i?? i?? i?? i?? i?? i?? i?? i?? i?? 1052 Addend um Cosign ed By: i?? i?? i?? i?? i?? i?? i?? i?? i?? i?? i?? i?? i?? i?? i?? i?? i?? i?? i?? i?? i?? i?? i?? i?? i?? i?? Anupama Menendez Maria De Jesus , : [birth year] DATE: 05/25/20 25 1:02 PM STUDY: CT lung screen ing CLINIC AL INDICA TION: 64 years old male with long-t erm smokin g histor y ORDERI NG PROVID ER: Matthe w J Zhou, PA COMPAR TRACY: 024. TECHNI QUE: Noncon trast, helica l, low-do se CT (LDCT) chest per standa rd depart mental protoc ol. Duran l and anselmo al reform atted images provid ed and review ed. LUNG SCREEN ING SPECIF ICS (LUNG- RADS): None POTENT IALLY SIGNIF ICANT INCIDE NTALS (LUNG- RADS Catego ry S): Tiny 3 mm solid pleura l-base d nodule stable in the periph elizabeth of the right upper lobe.. Lungs are otherw ise clear. No new, enlarg ing or suspic ious pulmon jose nodule s. PULMON JOSE INCIDE NTALS: OTHER INCIDE NTALS: Small amount of debris seen in the trache a at the thorac ic inlet. Airway s otherw ise patent . No abnorm ality seen in the thorac ic esopha david. Normal size heart. Short segmen t calcif ied plaque in the LAD. Mild calcif ied plaque along the unders urface of tortuo us thorac ic aorta. Thorac ic aorta otherw ise unrema rkable .. No medias tinal, hilar or axilla ry lympha denopa thy. Partia lly visual ized upper abdomi nal viscer a and vascul ature demons trates stable small low attenu ating nodule in the left hepati c lobe, fluid attenu ating. Additi onal tiny low attenu ating lesion seen more latera lly and superi gabby. Nonsus piciou s. Small low attenu ating nodule abutti ng the capsul e and the right hepati c lobe, fluid densit y. 1 cm. Partia lly visual ized upper abdomi nal viscer a and vascul ature are otherw ise unrema rkable . 035 CT/CT lung screen ing IMPRES YANNI: 1. LUNG-R ADS: 2-HUGH GN: Nodule s with a very low likeli woodard of becomi ng a clinic ally active cancer , due to size or lack of growth . 2. LUNG RADS Catego ry S: Negati ve: No new/un known potent ially signif icant incide ntal findin gs requir ing urgent additi onal evalua tion. 3. Small amount of aspira yehuda debris versus retain ed secret ions in the trache a. RECOMM ENDATI ONS: 1. Annual screen ing mammog bairon is recomm ended. If you are a curren t smoker , we recomm end smokin g cessat ion as soon as possib le. Electr onical ly Signed By: Al kwan DO On: 1341 Dictat ed By: Al kwan DO 1302 Signed By: Al kwan DO 1341 [email or web address] [facility] (Central Scheduling) [address] [place] [address], [address], 06/11/2025 13:27:56 Result Notes Documentation Provider Name and Address Organization Details Recorded Time Ldct, Chest, For Lung Cancer Screening : [address] [address] [address] Scan Report Signed Patient: Cl Pretty MR#: [id number] : 1960 Acct:[id number] Age/Sex: 63 / M ADM Date: 03/10/24 Loc: HE.CT Attending Dr: Raoul GUZMAN Ordering Physician: Raoul GUZMAN Date of Service: 03/10/24 Procedure(s): CT lung screening Accession Number(s): [id number] cc: Estephania Colon DO EXAM: CT lung screening CLINICAL INDICATION: Lung cancer screening study. Greater than 19-tdne-olfs tobacco smoking history, current smoker or has quit within the past 15 years. No signs or symptoms of lung cancer. Has participated in lung cancer screening counseling prior to CT. TECHNIQUE: Non-gated CT of the chest was performed without contrast using departmental low dose CT lung cancer screening protocol. Multiplanar reformats generated. 3D maximum intensity projection (MIP) images generated on the same workstation under concurrent physician supervision. Automated exposure control dose reduction technique utilized. Lung-RADS is used to classify findings, and is a classification proposed aid with findings in low dose CT screening exams for lung cancer, with the goal to standardized followup and management decisions. For more information, visit: [email or web address].org/Qualit y-Safety/Resources/LungRA DS COMPARISON: CT chest March 08, 2023 FINDINGS: Image quality, sensitivity for detection of pathology, and specificity of findings reduced by imaging artifacts due to low-dose technique. Nodules (solid and measured in axial plane unless otherwise specified, and may be marked on MIP images): Stable 2 mm nodule right upper lobe axial image 47 series 3 Emphysematous changes: Mild. Bronchiectasis: Absent. Bronchitis: Absent. Pleural effusions: Absent. Pneumothorax: Absent. Endoluminal airway lesions: Absent. Other findings: Slightly elevated right hemidiaphragm. Focal scarring in lungs. Mediastinum and theresa: No interval adenopathy. Heart: No cardiomegaly or pericardial effusion Coronary artery calcifications (subjective/qualitative assessment): Moderate Pulmonary vasculature: Nondilated. Thoracic aorta: Nondilated. Bones and soft tissues: Diffuse degenerative changes thoracic spine. Visualized Abdomen: None Electronically Signed in PowerScribe By Rosendo Hdz MD CT/CT lung screening IMPRESSION: LUNG-RADS Category 2 (benign appearance or behavior, less than 1 percent chance of malignancy and very low likelihood of becoming a clinically active cancer). Small stable right upper lobe pulmonary nodule. Recommend continued annual screening with low-dose chest CT, assuming patient continues to meet screening criteria. Other potentially important findings: 1. Mild bilateral pulmonary emphysematous changes. 2. Moderate coronary artery calcifications Additional findings as above. Dictated By: Rosendo Hdz MD Signed By: 03/10/24 1324 DD/ 1301 TD/TT: 03/10/24 1311 Inspector Subassemblies: BREE Epperson PA-C [address] [place] [address], [id number], [facility] 03/20/2024 13:58:43 Ldct, Chest, For Lung Cancer Screening : [address] [address] [address] Scan Report Signed Patient: Cl Pretty MR#: [id number] : 1960 Acct:[id number] Age/Sex: 64 / M ADM Date: 05/25/25 Loc: HE.CT Attending Dr: Raoul GUZMAN Ordering Physician: Raoul GUZMAN Date of Service: 05/25/25 Procedure(s): CT lung screening Accession Number(s): [id number] cc: Estephania Bay, : 1960 DATE: 05/25/2025 1:02 PM STUDY: CT lung screening CLINICAL INDICATION: 64 years old male with long-term smoking history ORDERING PROVIDER: MEGAN Srinivasan COMPARISON: 03/10/2024. TECHNIQUE: Noncontrast, helical, low-dose CT (LDCT) chest per standard departmental protocol. Coronal and sagittal reformatted images provided and reviewed. LUNG SCREENING SPECIFICS (LUNG-RADS): None POTENTIALLY SIGNIFICANT INCIDENTALS (LUNG-RADS Category S): Tiny 3 mm solid pleural-based nodule stable in the periphery of the right upper lobe.. Lungs are otherwise clear. No new, enlarging or suspicious pulmonary nodules. PULMONARY INCIDENTALS: OTHER INCIDENTALS: Small amount of debris seen in the trachea at the thoracic inlet. Airways otherwise patent. No abnormality seen in the thoracic esophagus. Normal size heart. Short segment calcified plaque in the LAD. Mild calcified plaque along the undersurface of tortuous thoracic aorta. Thoracic aorta otherwise unremarkable.. No mediastinal, hilar or axillary lymphadenopathy. Partially visualized upper abdominal viscera and vasculature demonstrates stable small low attenuating nodule in the left hepatic lobe, fluid attenuating. Additional tiny low attenuating lesion seen more laterally and superiorly. Nonsuspicious. Small low attenuating nodule abutting the capsule and the right hepatic lobe, fluid density. 1 cm. Partially visualized upper abdominal viscera and vasculature are otherwise unremarkable. CT/CT lung screening IMPRESSION: 1. LUNG-RADS: 2-BENIGN: Nodules with a very low likelihood of becoming a clinically active cancer, due to size or lack of growth. 2. LUNG RADS Category S: Negative: No new/unknown potentially significant incidental findings requiring urgent additional evaluation. 3. Small amount of aspirated debris versus retained secretions in the trachea. RECOMMENDATIONS: 1. Annual screening mammography is recommended. If you are a current smoker, we recommend smoking cessation as soon as possible. Electronically Signed By: Al Patterson DO On: 05/25/25 1341 Dictated By: Al Patterson DO 05/25/25 1302 Signed By: Al Patterson DO 05/25/25 1341 Sofya Chang CMA [address] [place], [address], [facility] [place] [facility] 06/11/2025 13:27:55 Ldct, Chest, For Lung Cancer Screening : [address] [address] [address] Scan Report Signed with Addenda Patient: Cl Pretty MR#: [id number] : 1960 Acct:[id number] Age/Sex: 64 / M ADM Date: 05/25/25 Loc: .CT Attending Dr: Raoul GUZMAN Ordering Physician: Raoul GUZMAN Date of Service: 05/25/25 Procedure(s): CT lung screening Accession Number(s): [id number] cc: Estephania Colon DO ADDENDUM Please see below for report changes. 1 cm low density nodule in the liver has features of either cyst or hemangioma, not suspicious. Recommendations: Annual screening low-dose CT chest. Report remains otherwise unchanged. Addendum Dictated By: Al Patterson DO Addendum Signed By: Al Patterson DO i?? i?? i?? i?? i?? i?? i?? i?? i?? i?? i?? i?? i?? i?? i?? i?? i?? i?? i?? i?? i?? i?? i?? i?? i?? i?? i?? i?? i?? i?? i?? 06/06/25 1052 Addendum Cosigned By: i?? i?? i?? i?? i?? i?? i?? i?? i?? i?? i?? i?? i?? i?? i?? i?? i?? i?? i?? i?? i?? i?? i?? i?? i?? i?? Cl Pretty : 1960 DATE: 05/25/2025 1:02 PM STUDY: CT lung screening CLINICAL INDICATION: 64 years old male with long-term smoking history ORDERING PROVIDER: MEGNA Srinivasan COMPARISON: 03/10/2024. TECHNIQUE: Noncontrast, helical, low-dose CT (LDCT) chest per standard departmental protocol. Coronal and sagittal reformatted images provided and reviewed. LUNG SCREENING SPECIFICS (LUNG-RADS): None POTENTIALLY SIGNIFICANT INCIDENTALS (LUNG-RADS Category S): Tiny 3 mm solid pleural-based nodule stable in the periphery of the right upper lobe.. Lungs are otherwise clear. No new, enlarging or suspicious pulmonary nodules. PULMONARY INCIDENTALS: OTHER INCIDENTALS: Small amount of debris seen in the trachea at the thoracic inlet. Airways otherwise patent. No abnormality seen in the thoracic esophagus. Normal size heart. Short segment calcified plaque in the LAD. Mild calcified plaque along the undersurface of tortuous thoracic aorta. Thoracic aorta otherwise unremarkable.. No mediastinal, hilar or axillary lymphadenopathy. Partially visualized upper abdominal viscera and vasculature demonstrates stable small low attenuating nodule in the left hepatic lobe, fluid attenuating. Additional tiny low attenuating lesion seen more laterally and superiorly. Nonsuspicious. Small low attenuating nodule abutting the capsule and the right hepatic lobe, fluid density. 1 cm. Partially visualized upper abdominal viscera and vasculature are otherwise unremarkable. CT/CT lung screening IMPRESSION: 1. LUNG-RADS: 2-BENIGN: Nodules with a very low likelihood of becoming a clinically active cancer, due to size or lack of growth. 2. LUNG RADS Category S: Negative: No new/unknown potentially significant incidental findings requiring urgent additional evaluation. 3. Small amount of aspirated debris versus retained secretions in the trachea. RECOMMENDATIONS: 1. Annual screening mammography is recommended. If you are a current smoker, we recommend smoking cessation as soon as possible. Electronically Signed By: Al Patterson DO On: 05/25/25 1341 Dictated By: Al Patterson DO 05/25/25 1302 Signed By: Al Patterson DO 05/25/25 1341 Sofya Chang CMA [address] [facility] [place], [address], [facility] [place] [facility] 06/11/2025 13:27:56 Problems Name Problem SNOMED Code Status Onset Date Resolution Date Notes Provider Name and Address Organization Details Recorded Time Headache [id number] WHIT Velez [place] - [facility] 6 15:52:13 Recurrent major depressive episodes 539949833 Active WHIT Mullen [place] - [facility] 6 15:52:13 Nausea [id number] Completed 01/17/2021 YAYA Garcia [facility] [place], [address], [facility] 1 13:29:49 Gastroesoph ageal reflux disease 529640999 [facility] 6 15:52:13 Measurement finding outside reference range 327375922 Completed 10/10/2018 YAYA Garcia [facility] [place], [address], [facility] 8 10:40:31 Hypo-osmola lity and or hyponatremi a 647539074 Completed 10/10/2018 YAYA Garcia [facility] [place], [address], [facility] 8 10:40:20 Shoulder joint pain 981136648 Completed 10/10/2018 YAYA Garcia [facility] [place], [address], [facility] 8 10:40:22 Neoplasm of uncertain behavior of skin 62816827 Completed 01/16/2019 YAYA Garcia [facility] [place], [address], [facility] 9 09:53:37 Hyperplasia of prostate 758805380 Active YAYA Garcia [facility] [place], [address], [facility] 6 13:31:12 Bursitis 07176882 Completed 10/10/2018 YAYA Garcia [facility] [place], [address], [facility] 8 10:40:50 [place] Completed 10/10/2018 YAYA Garcia [facility] [place], [address], [facility] 8 10:40:26 Sprain of knee 73818807 Completed 10/10/2018 [facility] [place], [address], [facility] 8 10:40:45 Anxiety 84059854 Completed 10/10/2018 [facility]A [facility] [place], [address], [facility] 8 10:40:37 Acute gastritis 71432478 Completed 200610/10/2018 [facility] [place], [address] 4, [facility] 8 10:40:16 Depressive disorder 10139845 Completed 200610/10/2018 [facility] [place], [address], [facility] 5 13:18:49 Pain in limb 70613577 Completed 200701/16/2019 [facility]A Garcia [facility] [place], [address], [facility] 9 09:53:41 Tobacco dependence syndrome 51870085 Active 2007 WHIT Mullen [facility] 6 15:52:13 Neck pain 03705751 Completed 200701/17/2021 [facility]AYA Garcia [facility] [place], [address], [facility] 1 13:29:52 Gastritis 8111299 Completed 200710/10/2018 [facility]A Garcia [facility] [place], [address], [facility] 8 10:40:42 Gastroduode nitis 793333130 Completed 200701/17/2021 [facility]AYA Garcia [facility] [place], [address], [facility] 1 13:29:42 Acute stress disorder 97191359 Completed 200710/10/2018 [facility]A [facility] [place], [address], [facility] 8 10:40:52 Anxiety state 394731446 [facility] 6 15:52:13 Spasm 89658315 Completed 200810/10/2018 [facility]A Garcia [facility] [place], [address], [facility] 8 10:40:34 Verruca vulgaris 39805474 Completed 200801/17/2021 YAYA Garcia [facility] [place], [address], [facility] 1 13:29:55 Low back pain 437455827 Active 2017 YAYA Garcia [facility] [place], [address], [facility] 8 10:45:38 Mixed hyperlipide teddy 112111589 Active 2023 YAYA Garcia [facility] [place], [address] 4, [facility] 4 07:21:09 Benign essential hypertensio n 2754683 Active 2023 YAYA Garcia [facility] [place], [address], [facility] 4 13:00:34 Cramp in lower limb 455361792 Active 2024 YAYA Garcia [facility] [place], [address], [facility] 5 13:32:34 Malaise and fatigue 101269506 Active 2024 YAYA Garcia [facility] [place], [address], [facility] 5 13:36:50 Glaucoma 20198494 Active 2024 YAYA Garcia [facility] [place], [address], [facility] 5 14:59:03 External hemorrhoids 79492538 Active 2024 YAYA Garcia [facility] [place], [address], [facility] 5 12:55:00 Problem Notes None recorded. Procedures Surgical History Date Name Laterality Status Provider Name and Address Organization Details Recorded Time 07/31/20 22 Colonoscopy completed YAYA Garcia [facility] [place], [address], [facility] 01/30/2025 08:19:54 06/25/20 20 transurethral prostatectomy completed YAYA Garcia [facility] [place], [address], [facility] 06/27/2020 21:12:01 07/07/20 14 Colonoscopy completed YAYA Garcia [facility] [place], [address], [facility] 04/03/2015 12:03:06 Imaging Results None recorded. Procedure Notes None recorded. Medical Equipment None Reported. Allergies Allergen ID Allergen Name Allergen Category Reaction Reaction Severity Criticality Documentation Date Start Date Code Code System Note Provider Name and Address Organization Details Recorded Time 25895 adhesive environme nt,medica tion other Not available Not available 01/16/2019 YAYA Garcia [facility] [place], [address], [facility] 9 09:38:30 Medications Name Sig Start Date Stop Date Status Note LastModified by Organization Details LastModified Time fluoxetin e 40 mg capsule TAKE ONE CAPSULE BY MOUTH EVERY DAY 2010 active Not Available Not Available Not Avai lable amoxicill in 500 mg capsule TAKE 1 CAPSULE BY MOUTH THREE TIMES DAILY(EV ELIZABETH 8 HOURS) UNTIL GONE 01/17 completed Not Available Not Available Not Available latanopro st 0.005 % eye drops INSTILL 1 DROP INTO LEFT EYE EVERY EVENING USE IN LEFT EYE ONLY 01/26 completed Not Available Not Available Not Available terazosin 5 mg capsule TAKE 1 CAPSULE BY MOUTH ONCE DAILY 01/17 completed Not Available Not Available Not Available methocarb ben 500 mg tablet TAKE 1 TABLET BY MOUTH 3 TIMES A DAY NEEDED 08/11 completed Not Available Not Available Not Available nystatin 100,000 unit/mL oral suspensio n USE 1 TEASPOON FUL (5 ML) FOUR TIMES DAILY. RINSE AND HOLD IN MOUTH LONG POSSIBLE BEFORE SWALLOWI NG. NO EATING OR DRINKING 30 MINUTES A 01/17 completed Not Available Not Available Not Available Protonix 40 mg tablet,de layed release active 1 tab po qd Not Available Not Available Not Available azithromy ciara 250 mg tablet Take 2 tablets (500 mg) by oral route once daily for 1 day then 1 tablet (250 mg) by oral route once daily for 4 days 06/19 completed Not Available Not Available Not Available aspirin 325 mg tablet Take 1 tablet every day by oral route. active prn instead of tylenol or motrin Not Available Not Available Not Available hydrocodo ne 5 mg-acetam inophen 325 mg tablet 11/12 completed Not Available Not Available Not Available phenazopy ridine 200 mg tablet 01/17 completed Not Available Not Available Not Available Tubersol 5 tub. unit/0.1 mL intraderm al injection solution Take 0.1 mL by intrader mal route. 01/10 completed Not Available Not Available Not Available melatonin 3 mg tablet 01/17 completed Not Available Not Available Not Available terazosin 1 mg capsule Take 1 capsule every day by oral route. 2010 active Not Available Not Available Not Avai lable prochlorp erazine maleate 10 mg tablet TAKE 1 TABLET BY MOUTH 3 TIMES A DAY 2011 active prn- usually takes 1 tab po qd when needed Not Available Not Available Not Available ciproflox acin 500 mg tablet TAKE 1 TABLET BY MOUTH EVERY 12 HOURS FOR 3 DAYS 01/17 completed Not Available Not Available Not Available sulfameth oxazole 800 mg-trimet hoprim 160 mg tablet TAKE 1 TABLET BY MOUTH TWICE DAILY FOR 7 DAYS 01/17 completed Not Available Not Available Not Available peg-elect rolyte solution 420 gram oral solution DRINK 240ML EVERY 15-20 MINUTES UNTIL FIRST HALF IS GONE. REPEAT 6 HOURS PRIOR TO PROCEDUR E. 01/25 completed Not Available Not Available Not Available Wellbutri n SR 100 mg tablet, 12 hr sustained -release 12/01 completed 1 po qd Not Available Not Available Not Available vancomyci n 125 mg capsule 1 tab daily 11/12 completed Not Available Not Available Not Available oxycodone -acetamin ophen 5 mg-325 mg tablet 01/17 completed Not Available Not Available Not Available citalopra m 20 mg tablet TAKE 1 TABLET BY MOUTH EVERY DAY 06/09 completed Not Available Not Available Not Available terazosin 2 mg capsule TAKE ONE CAPSULE BY MOUTH EVERY DAY 01/16 completed Not Available Not Available Not Available tamsulosi n 0.4 mg capsule TAKE 1 CAPSULE BY MOUTH EVERY DAY 2024 active Not Available Not Available Not Avai lable ciproflox acin 0.3 % eye drops 01/10 completed Not Available Not Available Not Available cephalexi n 500 mg capsule 11/12 completed Not Available Not Available Not Available Prozac 20 mg capsule 12/01 completed 1 po qd Not Available Not Available Not Available Viagra 25 mg tablet 1 pill po 1 hr prior to activity as needed 01/26 completed Not Available Not Available Not Available promethaz ine 25 mg tablet TAKE 1 TABLET BY MOUTH 3 TIMES A DAY NEEDED 01/17 completed Not Available Not Available Not Available brimonidi ne 0.2 % eye drops INSTILL 1 DROP INTO BOTH EYES EVERY 12 HOURS active Not Available Not Available No t Available nicotine 21 mg/24 hr daily transderm al patch 11/12 completed Not Available Not Available Not Available omeprazol e 20 mg capsule,d elayed release 0 active Not Available Not Available Not Available diclofena c sodium 75 mg tablet,de layed release TAKE 1 TABLET BY MOUTH TWICE A DAY NEEDED 01/25 completed Not Available Not Available Not Available lisinopri l 5 mg tablet TAKE 1 TABLET BY MOUTH EVERY DAY 06/22 completed Not Available Not Available Not Available pyridoxin e (vitamin B6) 100 mg tablet Take 1 tablet every day by oral route. 01/26 completed Not Available Not Available Not Available levofloxa ciara 500 mg tablet TAKE 1 TABLET BY MOUTH ONCE DAILY 03/25 completed Not Available Not Available Not Available timolol maleate 0.5 % eye gel forming solution INSTILL 1 DROP INTO BOTH EYES EVERY MORNING active Not Available Not Available No t Available finasteri de 5 mg tablet TAKE 1 TABLET BY MOUTH ONCE DAILY 01/17 completed Not Available Not Available Not Available brimonidi ne 0.15 % eye drops INSTILL 1 DROP INTO BOTH EYES EVERY 12 HOURS 06/22 completed Not Available Not Available Not Available loratadin e 10 mg tablet TAKE 1 TABLET BY MOUTH EVERY DAY 10/10 completed Not Available Not Available Not Available diazepam 5 mg tablet TAKE 1 TABLET BY MOUTH ONCE DAILY NEEDED 01/21 completed Not Available Not Available Not Available AcipHex 20 mg tablet,de layed release Take 1 tablet every day by oral route for 30 days. 2009 active Not Available Not Available Not Avai lable amoxicill in 500 mg-potass ium clavulana te 125 mg tablet 11/12 completed Not Available Not Available Not Available B-12 250 mcg tablet Take 1 tablet every day by oral route. 01/26 completed Not Available Not Available Not Available bupropion HCl SR 200 mg tablet,12 hr sustained -release TAKE 1 TABLET BY MOUTH TWICE A DAY 01/10 completed Not Available Not Available Not Available escitalop abena 20 mg tablet TAKE 1 TABLET BY MOUTH EVERY DAY 06/09 completed Not Available Not Available Not Available nicotine (polacril ex) 2 mg buccal lozenge 11/12 completed Not Available Not Available Not Available prochlorp erazine 10 mg tablet Take 1 tablet 3 times a day by oral route. 2010 active Not Available Not Available Not Avai lable cyclobenz aprine 5 mg tablet Take 1 tablet 3 times a day by oral route as needed. 01/17 completed Not Available Not Available Not Available Cialis 5 mg tablet TAKE 1 TABLET BY MOUTH EVERY DAY 06/09 completed Not Available Not Available Not Available nitrofura ntoin monohydra te/macroc rystals 100 mg capsule TAKE 1 CAPSULE BY MOUTH EVERY 12 HOURS FOR 10 DAYS 01/17 completed Not Available Not Available Not Available duloxetin e 30 mg capsule,d elayed release Take 1 capsule every day by oral route for 30 days. 10/10 completed Not Available Not Available Not Available duloxetin e 60 mg capsule,d elayed release TAKE 1 CAPSULE BY MOUTH ONCE DAILY 01/17 completed Not Available Not Available Not Available magnesium active Not Available Not Marysol ilable Not Available Vitamin C active Not Available Not Marysol ilable Not Available Aleve prn 01/21 completed not with ibuprofe n Not Available Not Available Not Available Naprosyn active Not Available Not Avai lable Not Available B Complex once daily 01/26 completed Not Available Not Available Not Available zinc active Not Available Not Availa ble Not Available prochlorp erazine 10mg 1 tab po q6hrs as needec active Not Available Not Available No t Available ibuprofen 06/09 completed Not Available Not Available Not Available Vitamin D3 1000iu 1 tab po qd active not in summer months Not Available Not Available Not Available multivita min 1 tab po qd 01/17 completed Not Available Not Available Not Available B6-500 1 tablet as needed 03/25 completed Not Available Not Available Not Available ProAir HFA 90 mcg/actua tion aerosol inhaler INHALE 2 PUFF(S) EVERY 6 HOURS BY INHALATI ON ROUTE NEEDED. 08/11 completed Not Available Not Available Not Available Fish Oil 1,000 mg capsule Take 2 capsules every day by oral route. 08/11 completed Not Available Not Available Not Available vitamin B comp no.3-foli c acid 1 mg-vit C 60 mg-biotin 300 mcg tablet active daily Not Available Not Available Not Available melatonin 5 mg capsule Take 1 capsule every day by oral route as needed. 01/25 completed Not Available Not Available Not Available Vitals Date Recorded Systolic And Diastolic Provider Name and Address Organization Details Last Updated DateTime 01/27/2024 150/100 mm[Hg] Raoul Epperson PA-C 57 [facility], [place], [address], [facility] 01/27/2024 11:05:42 Date Recorded Body height Body mass index (BMI) Body weight Body temperature Oxygen saturation Heart rate Systolic And Diastolic Systolic And Diastolic Provider Name and Address Organization Details Last Updated DateTime 4 167.89 cm 20.5 kg/m2 26959.9 3 g 97.6 [degF] 91 % 73 /min 169/101 mm[Hg] 145/104 mm[Hg] casandra esparza [facility] 4 10:33:56 Date Recorded Body height Body mass index (BMI) Body weight Heart rate Oxygen saturation Systolic And Diastolic Provider Name and Address Organization Details Last Updated DateTime 5 166.37 cm 21 kg/m2 17998.8 2 g 79 /min 98 % 132/84 mm[Hg] Marcos culp, [facility] 57 [facility] [place], [address], [facility] 5 13:13:17 Date Recorded Body height Body mass index (BMI) Body weight Body temperature Heart rate Oxygen saturation Systolic And Diastolic Systolic And Diastolic Provider Name and Address Organization Details Last Updated DateTime 4 167.89 cm 20.4 kg/m2 08460.2 3 g 98.2 [degF] 69 /min 97 % 132/94 mm[Hg] 130/89 mm[Hg] Lyric Rodriguez [facility] 4 12:50:30 Date Recorded Body height Body mass index (BMI) Body weight Heart rate Oxygen saturation Systolic And Diastolic Provider Name and Address Organization Details Last Updated DateTime 5 166.37 cm 20.7 kg/m2 92729.7 9 g 83 /min 99 % 126/82 mm[Hg] kirill vinson [facility] 5 12:44:09 Date Recorded Body height Body mass index (BMI) Body weight Body temperature Heart rate Oxygen saturation Systolic And Diastolic Provider Name and Address Organization Details Last Updated DateTime 3 167.64 cm 20.8 kg/m2 97096.4 2 g 96.7 [degF] 91 /min 99 % 130/80 mm[Hg] Marcos culp, [facility] 57 [place], [address], [facility] 3 09:17:44 Social History Question Answer Notes LastModified by Organization Details LastModified Time Tobacco Smoking Status Current Every Day Smoker Not Available [facility] 08/27/2020 03:12:23 What Is Your Level Of Caffeine Consumption? Moderate 1 Lg Cup Coffee [id number] Information not available 08/27/2020 How Much Tobacco Do You Chew? None [id number] Information not available 08/27/2020 What Type Of Diet Are You Following? REGULAR Working With A Med Surg Rn Information not available 01/29/2025 Which Illicit Or Recreational Drugs Have You Used? Marijuana/ Cbd Information not available 01/27/2024 Education 2 Year College Some College Information not available 05/07/2011 Are There Any Guns Present In Your Home? No [id number] Information not available 08/27/2020 Live Alone Or With Others? With Others Information not available 01/16/2019 Health Care Proxy No Discussed In CPE 12/25/2015 Information not available 12/25/2015 Tobacco Use Yes Information not available 01/16/2019 Type Of Tobacco Used Cigarettes Information not available 08/11/2018 Falls In The Last Year No Information not available 01/16/2019 Any Trouble Affording Your Medications? No Information not available 01/16/2019 Marital Status thao Informatio n not available 12/25/2015 What Was The Date Of Your Most Recent Tobacco Screening? 01/29/2025 Information not available 01/29/2025 How Many Children Do You Have? 1 [id number] Information not available 08/27/2020 Do You Have Any Pets? No Information not available 01/27/2024 Seat Belts Used Routinely Yes Try To Information not available 12/25/2015 Do You Have Smoke And Carbon Monoxide Detectors In Your Home? Yes Information not available 01/21/2022 At What Age Did You Start Smoking Tobacco? 23 Occasional Thoughts Of Quitting: Trying Electronic Cigarette [id number] Information not available 08/27/2020 How Much Tobacco Do You Smoke? 0.5 PPD To 1 Ppd [id number] Information not available 08/27/2020 Do You Use Sunscreen Routinely? Yes Not On A Daily Basis [id number] Information not available 08/27/2020 Sex: Male Functional Status Question Answer Note LastModified by Organizat ion Details LastModified Time Do you use any illicit or recreational drugs? Yes Information not available 01/27/2024 What is your level of alcohol consumption? Occasional working on quitting Information not available 01/29/2025 What is your occupation? Other [id number] Information not available 01/26/2025 What is your exercise level? Occasional trying to increase Information not available 01/29/2025 Mental Status None recorded. Family History Relationship Description Onset Age of this Age Resolved Age Notes LastModified by Organization Details LastModified Time Mother Problem macula r degene ration menos Not available 12/29/2015 13:31:12 Medical History Condition Response Muscle, Joint, or Bone Problems Y Skin Problems Y Vision or Eye Problems Y Bladder Problems Y ADD or ADHD Y Depression Y GI Problems Y Chicken Pox Y Immunizations Vaccine Type Date Status Note Provider Name and Address Organization Details Recorded Time Pneumococcal conjugate PCV20, polysaccharide JMC204 conjugate, adjuvant, PF 025 cancelled patient objection Raoul Epperson PA-C [address] [facility] [place], [address], [facility] 06/22/2025 13:02:07 Influenza, high-dose, trivalent, PF 025 cancelled patient objection Raoul Epperson PA-C [address] [facility] [place], [address], [facility] 06/22/2025 13:02:07 Influenza, split virus, trivalent, PF 011 completed Not Available [facility] 11/11/2019 02:10:23 Td(adult) unspecified formulation 005 completed Not Available [facility] 06/26/2020 20:16:15 Tdap 015 completed Not Available [facility] 11/11/2019 02:10:20 Influenza, recombinant, quadrivalent, PF 019 completed Not Available [facility] 11/11/2019 02:10:29 MMR 011 completed Not Available [facility] 11/11/2019 02:10:22 Past Encounters Encounter ID Performer Location Encounter Start Date Encounter Closed Date Diagnosis/Indication Diagnosis SNOMED-CT Code Diagnosis ICD10 Code Diagnosis IMO Codes Diagnosis Note [id number] Estephania Colon, DO OFFICE [address] [place] [address] 03/16/2007 18:29:33 03/16/2007 18:49:49 [id number] Estephania Colon, OFFICE [address] [place] [address] [place] [address] 04/06/2007 17:39:49 04/06/2007 18:18:20 [id number] Estephania Colon, OFFICE [address] [place], [place] [address] [address] 08/10/2007 18:21:36 08/10/2007 18:47:34 [id number] Estephania Colon, OFFICE [address] [place] [address] 01/30/2008 18:04:42 01/30/2008 18:31:15 [id number] Estephania Colon, OFFICE [address] [place] [address] 04/19/2008 08:55:49 04/19/2008 09:23:16 [id number] Estephania Colon, OFFICE [address] [place] [address] 05/14/2008 18:30:28 05/14/2008 19:01:37 [id number] Raoul Rojas Zhou, PA-C [address] [address] 05/22/2008 10:09:35 05/22/2008 10:39:32 [id number] Raoul Rojas Zhou, PA-C [address] [address] 09/27/2008 12:49:30 09/27/2008 13:25:27 [id number] Raoul Rojas Zhou, PA-C [address] [address] 4 02/28/2009 15:23:56 02/28/2009 16:54:50 [id number] Raoul Rojas Zhou, PA-C [address] [address] 08/07/2009 14:49:47 08/07/2009 15:43:07 [id number] Raoul Rojas Zhou, PA-C [address] [address] 04/08/2010 09:10:18 04/08/2010 09:53:13 [id number] Raoul Rojas Zhou, PA-C OFFICE [address] [place] [address] [place] [address] 06/11/2010 13:46:12 06/11/2010 14:42:52 [id number] Raoul Rojas Zhou, PA-C OFFICE [address] [place] [address] [place] [address] 07/16/2010 12:54:49 07/16/2010 13:40:47 [id number] Raoul Rojas Zhou, PA-C OFFICE [address] [place] [address] [place] [address] 12/01/2010 07:56:33 12/01/2010 08:38:00 [id number] Raoul Rojas Zhou, PA-C OFFICE [address] [place] [address] [place] [address] 01/14/2011 10:33:56 01/14/2011 11:54:58 [id number] Raoul Rojas Zhou, PA-C OFFICE [address] [place] [address] [place] [address] 03/09/2011 08:20:23 03/09/2011 09:47:50 [id number] Raoul Rojas Zhou, PA-C OFFICE [address] [place] [address] [place] [address] 05/07/2011 07:58:46 05/07/2011 08:48:16 [id number] Raoul Rojas Zhou, PA-C OFFICE [address] [place] [address] [place] [address] 07/03/2011 08:48:36 07/03/2011 09:46:54 [id number] Raoul Rojas Zhou, PA-C OFFICE [address] [place] [address] [place] [address] 4 07/21/2011 08:39:14 07/21/2011 09:25:13 [id number] Raoul Rojas Zhou, PA-C OFFICE [address] [place] [address] [place] [address] 08/24/2011 08:36:38 08/24/2011 09:04:11 [id number] Raoul Rojas Zhou, PA-C OFFICE [address] [place] [address] [place] [address] 11/06/2011 08:01:05 11/06/2011 08:31:32 [id number] Raoul Rojas Zhou, PA-C OFFICE [address] [place] [address] [place] [address] 03/04/2012 08:50:46 03/04/2012 09:33:21 [id number] Raoul Epperson PA-C OFFICE 57 [facility] [place] [address] 05/30/2012 09:04:31 05/30/2012 10:06:00 [id number] Raoul Epperson PA-C OFFICE 57 [facility] [place] [address] 01/16/2013 12:50:42 01/16/2013 13:20:33 [id number] Raoul Epperson PA-C OFFICE [address] [facility] [place] [address] 10/04/2013 13:17:03 10/04/2013 14:55:49 Adult health examination [id number] Healthy 52 yo M. Continue activities as tolerated. check labs Anxiety state 635145999 co ntrolled on meds; stable given current life circumstan sonny. Depressive disorder 09907413 controlled on meds; stable given current life circumstan sonny. Hyperplasi a of prostate 452695105 Pt not experienci ng any urinary symptoms at this time. Well controlled on current medication s. Nausea 774004364 continue as needed medication s Screening for malignant neoplasm of colon [id number] Raoul Epperson PA-C OFFICE [address] [place] [address] 04/02/2014 13:26:12 04/02/2014 14:22:15 Anxiety state 294520145 will stop citalopram and change to esciptalop abena (Lexapro) as listed. follow up 1 month. Depressive disorder 33615168 will stop citalopram and change to esciptalop abena (Lexapro) as listed. follow up 1 month. Tobacco de pendence syndrome 04993261 continue efforts towards quitting. consider a different version of an e-cig. [id number] Raoul Epperson PA-C OFFICE 57 [facility] [place] [address] 04/30/2014 08:40:40 04/30/2014 09:16:40 Anxiety state 447892809 continue medication s as prescribed . follow up 2 months. Depressive disorder 13913125 continue medication s as prescribed . follow up 2 months.. Lentigo 113830334 normal appearing freckle today on the right calf. if patient notices that it continues to appear to be changing will excise. [id number] Raoul Epperson PA-C OFFICE [address] [facility] [place] [address] 07/02/2014 09:13:21 07/02/2014 09:47:51 Anxiety state 770546222 continue medication s as prescribed . follow up CPE Hyperplasi a of prostate [id number] patient asked about potential to switch to Cialis daily use instead of finasterid e if he can donate blood on Cialis as he cannot currently. he will check the [employer] website and switch if wants. [id number] Raoul Epperson PA-C OFFICE [address] [facility] [place] [address] 12/13/2014 12:55:51 12/13/2014 13:47:36 Adult health examination [id number] Healthy 54 yo M. Continue activities as tolerated. check labs Administra tion of diphtheria, pertussis, and tetanus vaccine [id number] Sprain of knee 87791501 co ntinue to care as has been. if stops improving return to office. Hyperplasi a of prostate 308495530 will use Cialis daily use as listed. [id number] Raoul Epperson PA-C OFFICE [address] [place] [address] 02/06/2015 12:40:31 02/06/2015 13:15:06 Hyperplasia of prostate 107629764 will use Cialis daily use as listed. Iza has called the pharmacy. the coverage is now there for the 1 month supply at $51 and some change. patient is okay with this for now. check PSA today as has been a while since last checked. [id number] Raoul Epperson PA-C OFFICE [address] [place] [address] 04/10/2015 10:00:53 04/10/2015 10:31:38 Hyperplasia of prostate 934171832 change to Cialis as listed. Approval letter printed with prescripti on to have filled. Depressive disorder [id number] patient is looking into online therapy. [id number] Raoul Epperson PA-C OFFICE [address] [facility] [place] [address] 12/25/2015 14:56:49 12/25/2015 16:47:51 Adult health examination 679098546 Z00.01 Healthy 55 yo M. Continue activities as tolerated. check labs Anxiety 02734456 F41.9 continue with medication as prescribed Hyperplasi a of prostate 562337607 N40.0 continue medication as prescribed discuss finasterid e and does not want to take it because he wants to donate blood he will see if insurance will cover daily cialis yet or not [id number] Estephania Colon, DO OFFICE [address] [place] [address] 06/09/2016 10:54:11 06/09/2016 11:25:22 Cough 76462410 R05 Will start on antibiotic as listed and discussed will give rescue inhaler to use as well in cases of coughing fits. Tobacco user 180147931 Z 72.0 Discussed importance of cessation and pt declines any medication s or referrals at this time and would like to quit on his own. [id number] Estephania Colon, DO OFFICE [address] [place] [address] 06/17/2016 10:34:21 06/17/2016 12:01:06 Numbness and tingling sensation of skin 9888575673 02 R20.2 Patient states that has not been taking his B complex vitamins so ? a deficiency vs developing an anemia d/t illness -check labs as listed. Discussed head CT and pt declines at this time. Discussed if symptoms worsen to present to ER. VSS in the office and no CP or SOB Fatigue 78701361 R53.83 Check labs-?rela yehuda to illness Cough 67941592 R05 Has improved but still lingering so will obtain CXR [id number] Raoul Epperson PA-C OFFICE [address] [place] [address] 06/19/2016 13:59:47 06/19/2016 15:33:00 Numbness and tingling sensation of skin 3053556898 02 R20.2 resolved. no recurrence of symptoms.c ontinue to monitor. Fatigue 99462786 R53.83 still a little present, but patient would like to return to work. Cough 53337974 R05 Has improved but still lingering. improved enough patient is ready to go back to work. Anxiety state 985138505 F41.1 doing well on current medication s. rare use of diazepam.c ontinue medication s and follow up CPE and as needed. Recurrent major depressive episodes 596622097 F33.0 doing well on current medication s. rare use of diazepam. continue medication s and follow up CPE and as needed. Skin lesion 30000543 L98 .9 right side of face spot is a clogged pore. this will resolve over time on its own. [id number] Raoul Epperson PA-C OFFICE [address] [facility] [place] [address] 08/31/2016 12:51:13 08/31/2016 13:26:39 Cough 86940818 R05 will check chest x-ray. discussed PFT breathing test. patient declines for now would like to wait to cover his deductible . but will check the x-rayalso recommend starting loratadine 10 mg once daily. see if insurance covers. Spasm 09171083 R25.2 recommend trying tonic water with quinine.al so will try increasing the methocarba mol to 2 pills per dose Benign pro static hyperplasia with outflow obstruction 412639433 N40.1 restarted finasterid e. may wish to persue discussion with urologist to see about surgical options. will refer if wants. Abnormal posture 7813422 2 R29.3 I agree chiropract or may help the posture symptoms.p atient to check if insurance covers chiropract or. if needed we can recommend a few. [id number] Raoul Epperson PA-C OFFICE [address] [facility] [place] [address] 01/04/2017 08:04:00 01/04/2017 09:22:59 Adult health examination 895663969 Z00.01 56 yo male in his usual state of health. Continue activities as tolerated. check labs today. Hyperplasi a of prostate 897153306 N40.0 recommend looking at the [facility] site for Avadart & Flomax. if acceptable will switch to these medication s. Nausea 380084812 R11.0 continue as needed medication s Renewal of prescription 814713193 Z76.0 renewed today Recurrent major depressive episodes 177085870 F33.0 doing well on current medication s. rare use of diazepam.c ontinue medication s and follow up CPE and as needed. Seasonal a llergic rhinitis 041673605 J30.2 recommend changing to either Zyrtec or Radha. [id number] Raoul Epperson PA-C OFFICE [address] [place] [address] 01/10/2018 08:01:54 01/10/2018 09:19:22 Adult health examination 316257909 Z00.01 57 yo male in his usual state of health. Continue activities as tolerated. check labs today. has been screen Hep C through blood donations. Hyperplasi a of prostate 833627431 N40.0 patient is using OTC medication . continue as has been working well for him. check labs today Tobacco de pendence syndrome 45653188 F17.200 continue efforts towards quitting. check LDCT screen for lung cancer Neoplasm o f uncertain behavior of skin 59595064 D48.5 no worrisome moles/frec kles today Raynaud's phenomenon 266 204849 I73.00 see hand out for what this is and what can be tried to help symptoms also see note for work. Low motivation 50627186 R45.89 discussed mood with patient. it it per him more lack of motivation . he is in the process of figuring things out. discussed therapy and medication s if needed/wan yehuda History of exposure to lead 575109840 Z77.011 possibly ingesting lead through one of his supplement s. patient will see if insurance covers the testing. [id number] Raoul Epperson PA-C OFFICE [address] [place] [address] 08/11/2018 14:26:55 08/11/2018 15:41:29 Anxiety state 953299169 F41.1 resume medication s as per patient's feel should be on something again. [employer] does not find patient, which means he has not had diazepam in over 1 year. Recurrent major depressive episodes 462627369 F33.0 resume medication s. will try duloxetine due to also having the chance of helping pain Tobacco de pendence syndrome 60393250 F17.200 continue efforts towards quitting use of tobacco Low back pain 203714256 M54.5 duloxetine may help the pain. continue OTC efforts and muscle relaxer as needed. Renewal of prescription 324695919 Z76.0 renewed today [id number] Raoul Epperson PA-C OFFICE [address] [place] [address] 09/05/2018 12:52:20 09/05/2018 13:34:46 Anxiety state 612497324 F41.1 Recurrent major depressive episodes 431204626 F33.0 Low back pain 151861276 M54.5 [id number] Raoul Epperson PA-C OFFICE [address] [place] [address] 10/10/2018 09:55:29 10/10/2018 10:59:48 Anxiety state 079194667 F41.1 doing well at this time. continue duloxetine as has been. Recurrent major depressive episodes 003156175 F33.0 although the PHQ9 questions have not changed at this time, patient related things are doing better. will continue at current dosing. Low back pain 728429037 M54.5 duloxetine is helping the pain. continue at current dosing. Hyperplasi a of prostate 269267769 N40.1 restart medication s and refer to urology as requested. check labs today due to last PSA was December, [id number] Raoul Epperson PA-C OFFICE [address] [place] [address] 01/16/2019 09:01:50 01/16/2019 10:05:24 Adult health examination 259486656 Z00.01 58 yo male in his usual state of health. Continue activities as tolerated. check labs today. has been screen Hep C through blood donations and schooling Anxiety state 882857531 F41.1 doing well at this time. continue duloxetine as has been. Gastroesop hageal reflux disease 930209147 K21.9 controlled at this time. continue as has been Recurrent major depressive episodes 769889636 F33.0 doing well at this time. Hyperplasi a of prostate 042377552 N40.1 continue with urology and medication s. Tobacco de pendence syndrome 98148814 F17.200 continue efforts towards quitting use of tobacco patient has decided to skip this year for the LDCT lung cancer screening. Screening for malignant neoplasm of colon 130841074 Z12.11 will be do later this year. so sending referral now to get in line to have it done and not missed. [id number] Raoul Epperson PA-C OFFICE [address] [place] [address] 07/17/2019 08:38:42 07/17/2019 09:32:47 Anxiety state 761908052 F41.1 doing well at this time. continue duloxetine as has been. Recurrent major depressive episodes 115524262 F33.0 doing well at this time. Hyperplasi a of prostate 485817445 N40.1 continue with urology and medication s. will check PSA and send to urologist Rosie marie 3054462 3 B07.9 recommend the OTC [employer] brand wart remover strips. Influenza vaccination declined 942821845 Z28.21 declines flu shot today History of urinary tract infection 1737792041 107 Z87.440 will check urine culture to make sure infection has been treated. [id number] Estephania Colon, OFFICE [address] [place] [address] 08/10/2019 10:02:12 08/10/2019 10:41:55 Urinary tract infectious disease 89307992 N39.0 will resend culture and will treat. very likely to be infective. will refer to urology if does not clear. did improve on abx then slowly started comming back. has appt with uro in september. Discussed to call in 3-5 days if no improvemen t or any worsening. or if any symptoms comes back. [id number] Raoul Epperson PA-C OFFICE [address] [place] [address] 08/21/2019 10:54:07 08/21/2019 12:08:09 Urinary symptoms 193298551 R39.9 there is chance that the infection was not fully treated. also may be an infection to the prostate. will treat with cipro as listed. also will have referrals contact Dr. Chu's office to get sooner appt than Sep, 2019. the back symptoms as shown in the office may be related to his bladder symptoms. if do not improve with work up and antibiotic s please follow up. Prostate s pecific antigen above reference range 249310206 R97.20 recheck PSA today as has been over 1 month and was elevated last time. discussed could be infection. but will be getting in contact with Dr. Chu's office to be seen sooner. Active or passive immunization 351503544 Z23 up date today [id number] Raoul Epperson PA-C OFFICE [address] [place] [address] 03/25/2020 07:55:26 03/25/2020 12:04:29 Anxiety state 843469104 F41.1 patient feels he is doing well, medication s and continuing to work have helped. will continue as is for now, follow up for a CPE when able [4 months is the furthest out to be], or sooner if needed. Recurrent major depressive episodes 959040909 F33.0 patient feels he is doing well at this time. the fact that he is still working has been helpful. will continue medication s. Hyperplasi a of prostate 626864815 N40.1 continues to work with urology. next part of the process is a cystoscopy when those can start back up. [id number] Raoul Epperson PA-C OFFICE [address] [place] [address] 05/13/2020 10:54:21 05/13/2020 11:43:48 Spasm 48743763 R25.2 right shoulder is most likely overuse from work will try muscle relaxer and stretches as listed. Non-neoplastic nevus 195 040815 I78.1 spots on right arm and back or not dangerous at this time. they all appear normal currently. Impotence 907401786 N52. 9 will try generic viagra as listed. [id number] Raoul Epperson PA-C OFFICE [address] [place] [address] 07/26/2020 12:51:48 07/26/2020 14:52:30 Urinary tract infectious disease 67041029 N39.0 patient was placed on Macrobid antibiotic at urgent care in [place]. he feels it is helping, but having some muscle aches. almost done with the medication at this time. discussed will get urine culture results from urgent care and if needed / wanted due to side effects, change medication . 7 min 48 sec on phone with patient and Urgent Care called him. He will call them back while we as well call to get the urine culture results and then will speak with patient again. [id number] Raoul Epperson PA-C OFFICE [address] [place] [address] 01/17/2021 13:15:46 01/17/2021 14:18:01 Adult health examination 137494173 Z00.01 otherwise healthy male. check cholestero l today as other labs recently done when he was in the ER. follow up yearly and as needed. Recurrent major depressive episodes 142651747 F33.0 patient overall feels things are good. current circumstan sonny may be making depression worse. does not feel medication is needed currently. Anxiety state 705731436 F41.1 no symptoms currently. continue as has been. Gastroesop hageal reflux disease 933428151 K21.9 no symptoms currently. continue to monitor dietary intake for foods/beve rages that may cause symptoms. Hyperplasi a of prostate 937255876 N40.1 continues with urology at this time. Tobacco user 141356596 Z 72.0 discussed stopping tobacco use and LDCT lung cancer screening. patient declines [id number] Raoul Epperson PA-C OFFICE [address] [place] [address] 11/12/2021 09:48:58 11/12/2021 10:40:07 Pain in right lower limb 713028487 M79.604 discussed the likely chance of mejia splints. will check x-rays to rule out other possible things. discussed use of ice prior to extra activities . heat is okay as well Admits alcohol use 52674 3596 Z72.89 check labs by request Tobacco user 767738150 Z 72.0 discussed stopping tobacco usepatient would like another LDCT chest screening. [id number] Raoul Epperson PA-C OFFICE [address] [place] [address] 01/21/2022 09:59:46 01/21/2022 11:23:19 Adult health examination 728218302 Z00.01 otherwise healthy male. check labs listed. activities as tolerated. Hyperplasi a of prostate 316304295 N40.1 check psa. due to symptoms will refer back to urology Recurrent major depressive episodes 246893323 F33.0 does not feel he needs to be on medication . feels it is more to do with living arrangemen ts at this time. Pain of ri ght shoulder joint 4532906314 8146367 M25.511 there is muscle spasm present to the right shoulder joint regions. see exercise to help ease those spasms/sym ptoms Intolerance to food 6507 38161 K90.49 patient notes he cannot eat parsley stems as his throat gets tight feeling.al so wondering about leaky gut syndrome. will check to see if any food allergy/se nsitivitie s are present. [facility] Scre[facility] for malignant neoplasm of colon 261114678 Z12.11 overdue for colonoscop y. will refer at this time Tobacco user 904923958 Z 72.0 discussed stopping tobacco useI have staff reaching out to [facility] to find out where he stands with referral for LDCT lung cancer screening referral from back in 10/2021. [id number] Estephania Colon, DO OFFICE [address] [facility] [place] [place] [address] 01/25/2023 13:04:51 01/25/2023 14:26:09 Adult health examination 069818586 Z00.01 male in usual state of health. follow up yearly and as needed otherwise. check labs today Anxiety state 424431513 F41.1 patient feels anxiety here and there related to roommate issues that continue Hyperplasi a of prostate 468392323 N40.1 check PSA free and total due to Hx of enlarged prostate and previous surgery. Recurrent major depressive episodes 467124815 F33.0 patient feels things are okay other than roommate issues still. feels okay without medication as this time. PHQ9 reflective of this. Tobacco de pendence syndrome 16450325 F17.200 discussed stopping tobacco. patient continues to try. check LDCT chest lung cancer screening. Disorder of vision 33155 002 H53.9 will refer to eye doctor out in the [facility] [place] area. Dupuytren' s disease of palm 616129798 M72.0 discussed this is overgrowth of the tendons and tendon sheaths. can refer to ortho if becomes a problem, but patient declines referral at this time. Elevated blood-pressure reading without diagnosis of hypertension 702605287 R03.0 blood pressure was improving as during visit. likely the continued elevated was from the drive to get here with lots of traffic. patient to monitor BP at home and if notes continued elevation please follow up. [id number] Estephania Colon, DO OFFICE [address] [place] [address] 07/30/2023 09:08:51 07/30/2023 09:43:02 Fatigue 27717125 R53.83 some fatigue building over the last month, check labs to look for medical causes for his fatigue Urinary symptoms 3312489 08 R39.9 urine symp for the last month, is better but cont with symp, urine dip ok, but check cx Stress 76140702 Z73.3 stress due to apartment building is being sold also issues with roommates Influenza vaccination declined 745771669 Z28.21 [id number] Estephania Colon, DO OFFICE [address] [place] [address] 01/27/2024 10:18:04 01/27/2024 11:16:28 Adult health examination 735308020 Z00.01 male in usual state of health. follow up yearly and as needed otherwise. check labs today Tobacco user 022966330 Z 72.0 discussed stopping tobacco use. has bought a new vaping type device to help decrease use.needs LDCT lung cancer screening test ordered for this year. Screening for malignant neoplasm of colon 117656243 Z12.11 feels he is due for next colonoscop y. will refer. Disorder of prostate 302 34566 N42.9 refer back to urologist for updated evaluation and treatment considerat ions. Elevated blood-pressure reading without diagnosis of hypertension 017845945 R03.0 BP elevated today. may be related to the weather and his anxiety. discussed starting medication due to the significan t elevation. will follow up in ~ 3 weeks and if improved to under 120 systolic will discuss whether or not continuing medication is needed. Vaccine de clined by patient 9420936390 02 Z28.21 patient declines updating any vaccinatio ns at this time. would consider Td but not due until next year. Anxiety state 158596835 F41.1 patient looking into non-prescr iption ways to deal with anxiety / stress and sleep concerns. [id number] Estephania Colon, DO OFFICE [address] [place] [address] 02/16/2024 12:32:24 02/16/2024 13:30:14 Benign essential hypertension 7176404 I10 BP has improved. will continue medication at this time. check labs today.disc ussed cough side effect would not be random times. would be very noticeable . probably at first would be noticeable to others and then to himself. would be more of a clearing the throat kind of cough and then may become more deep. with the current randomness of the cough it is not likely related to the medication . [id number] Estephania Colon, DO OFFICE [address] [place] [place] [address] 01/29/2025 12:51:47 01/29/2025 14:18:05 Anxiety state 588785890 F41.1 patient continues to manage without medication . Is taking steps to reduce stress that can be a contributi ng factor. Benign ess ential hypertension 6447313 I10 blood pressure is okay today. continue as has been Gastroesop hageal reflux disease 097529496 K21.9 no concerning symptoms at this time. Hyperplasi a of prostate 492060221 N40.1 chekc labs today and patient would like to resume use of tamsulosin . Mixed hyperlipidemia 267 893014 E78.2 check labs and continue good diet. Recurrent major depressive episodes 932697851 F33.0 patient is managing okay at this time. Admits alcohol use 02637 7006 Z72.89 patient has been cutting back on alcohol use. continue as able. Endocrine/ metabolic screening 082822540 Z13.228 patient requests labs based on request from [employer]. but not certain insurance will cover these labs, so he will have them drawn at an outside lab the [employer] knows is less out of pocket expense Cramp in lower limb 4499 33139 R25.2 patient has mentioned cramps to legs. will check labs and consider use of topical theraworx Malaise and fatigue 2717 96070 R53.81 R53.83 recheck vitamin D level due to fatigue. Smoker 38795369 F17.200 patient will be attempting to quit tobacco use but feels quitting alcohol use may be more important currently. will arrange for this years LDCT chest for lung cancer screening. Glaucoma 74714948 H40.9 continue with eye doctors and continue eye drops as prescribed . Vaccine de clined by patient 7345736901 02 Z28.21 patient declines updating any vaccinatio ns at this time. Screening for malignant neoplasm of colon 015072849 Z12.11 colonoscop y was in 2021, will reach out to provider at [facility] to find out when he is next due. [id number] Estephania Colon, DO OFFICE [address] [place] [place] [address] 06/22/2025 12:33:17 06/22/2025 13:12:28 External hemorrhoids 75542574 K64.4 50000 there is a hypertroph ied area at the rectal sphincter. most likely an external hemorrhoid . will refer to colorectal provider nearer to his residence in [facility] Vaccination declined 291 4211590 Z28.21 1645902964 patient declines updating any vaccinatio ns at this time. Benign ess ential hypertension 6947545 I10 blood pressure is okay today. continue as has been, follow up CPE, sooner if needed Health Concerns Section Related Observation LastModified by Organization Detai ls LastModified Time None Recorded Concern Status LastModified by Organization Details LastModified Time None Recorded Advance Directives Directive None Recorded Payers Insurance Date Sequence Insurance Name Policy Number Policy Bucio Covered Member ID Bucio Member ID Guarantor Name 07/30/2023 1 [facility] (O) [id number] Cl Pretty [id number] Cl Pretty 12/13/2014 1 [facility] Jami Abarca [id number] Cl Pretty 07/30/2023 1 [facility] (POS II) [id number] Cl Menendez Pretty [id number] Cl Pretty 08/09/2025 1 [facility] (MEDICARE REPLACEMENT /ADVANTAGE - HMO) Cl Menendez Pretty [id number] Shalomdon Pretty 03/06/2025 1 [place] [employer] Cl Menendez Pretty [id number] Shalomdon Pretty 01/29/2025 1 [facility] (MEDICARE REPLACEMENT /ADVANTAGE - PPO) [id number] Shalomdon K Pretty [id number] Shalomdon Pretty 01/26/2024 1 [place] [facility] PLAN Shalomdon Gemma Pretty [id number] Cl Pretty 06/21/2025 [facility] (MEDICARE REPLACEMENT /ADVANTAGE - HMO) Cl Menendez Pretty [id number] Shalomdon Pretty 03/06/2025 2 [employer] [facility] [id number] Cl Pretty [id number] Cl Pretty Notes Date Note Type Note Provider Name and Address Organization Details Recorded Time 3 text/html Pt is here today due to been feeling really tired and unmotivated for a while. Pt states that he has been having a lot of fatigue and no motivation for a few weeks. He states that he had a uti around the same time his sx started but he didn't seek treatment. He states that he used cranberry juice which helped some. He states that he has a lot of stress in his life right now as well due to they are selling his apartment building and he isn't sure what his next steps will be. He states that this is all affecting his appetite, especially in the morning. Estephania Colon, DO [address] [facility] [place], [address], [facility] 07/30/2023 09:34:57 4 text/html cpe: lots of anxiety driving things due to life circumstances. YAYA Garcia [facility] [place], [address], [facility] [facility] 01/27/2024 11:24:23 4 text/html BP check: feeling well. does have a cough, but more like an allergy cough. YAYA Garcia [facility] [place], [id number], [facility] 02/17/2024 07:11:26 5 text/html Pt is here today for CPE. He states that he has been monitoring his bp and urine output at home. He states that he has been seeing his eye dr for glaucoma. He states that he is following an online flat polisher and has a list of labs that he would like done. He states that he has been dealing with leg pain at night so would like to talk about how to deal with that. YAYA Garcia [facility] [place], [address], [facility] 01/30/2025 08:14:30 5 text/html Pt is here today for suspicion of hemorrhoid, pt states he noticed it about 3 months ago- bleeding and discomfort intermittentkeeping the area clean and using OTC products to help relieve the issue. most of the time can keep it under control, but does have a feel it is enlarging. Raoul Epperson PAPhuc [address] [place], [address], [facility] 06/22/2025 13:10:04 Data Portability Created on: October 10, 2025 Cl Pretty .[id number] : 1960 Sex: Male Author Organization [facility], OFFICE Address [address] [facility] [place] [address] Assessment No assessment recorded. Plan of Treatment Reminders Order Date Submit Date Provider Last Modified By Organization Details Last Modified Time Details [facility]ments [facility]00P M Raoul Epperson PA-C Not available Not available Not available COMPLETE PHYSICAL 2025 10:15A M Raoul Epperson PA-Rodo Not available Not available Not available Lab lipid panel, serum 2024 025 [facility] Patient Reg, [address] [place], [address], 01/29/2025 18:16:24 CMP, serum or plasma 2024 025 [facility], [address] [place], [address], 01/29/2025 18:16:23 CBC w/ auto diff 2024 025 [facility], [address] [place], [address], 01/29/2025 20:16:34 magnesium , serum or plasma 2024 025 [facility], [address] [place], [address], 01/29/2025 18:16:24 insulin, free + total, serum [address] Patient Reg, [address] [place] [address] [place], [address], 04/10/2025 09:32:45 CRP, high sensitivi ty, serum or plasma [address] Patient Reg, [address] [place] [address], [address], 04/10/2025 09:32:45 erythrocy te sedimenta tion rate, QN, blood [address] Patient Reg, [address] [place] [address], [address], 04/10/2025 09:32:45 HbA1c (hemoglob in A1c), blood [address] Patient Reg, [address] [place] [address], [address], 04/10/2025 09:32:45 25-hydrox yvitamin D2 + 25-hydrox yvitamin D3, QN, serum or plasma 2024 025 [facility], [address] [place] [address], [address], 01/29/2025 18:30:43 prostate specific Ag, serum or plasma 2024 025 [facility] Patient [facility], [address] [place] [address], [address], 01/29/2025 18:20:27 BMP, serum or plasma 2023 024 [facility], [address] [place] [address], [address], 02/16/2024 16:59:38 CMP, serum or plasma 2023 024 [facility], [address] [place] [address], [address], 01/27/2024 17:01:21 lipid panel, serum 2023 024 [facility], [place], [address], 01/27/2024 17:01:22 urinalysi s, dipstick [email or web address] [place] [address], [address] [place] [address], [place], [address], 07/30/2023 09:33:40 culture, urine 2022 023 [facility], [place], [address], 08/01/2023 06:59:14 urinalysi s, dipstick, reflex micro 2022 023 [facility] Patient [facility], [place], [address], 07/30/2023 17:09:52 vitamin B12 + folate, serum or blood 2022 023 [facility], [place], [address], 07/30/2023 17:52:26 25-hydrox yvitamin D2 + 25-hydrox yvitamin D3, QN, serum or plasma 2022 023 [facility], [place], [address], 07/30/2023 17:54:02 TSH, serum, reflex free T4 2022 023 [facility], [place], [address], 07/30/2023 17:52:29 iron panel, serum or plasma 2022 023 [facility], [address] [place], [address], 07/30/2023 17:52:29 CBC w/ auto diff 2022 023 [facility], [address] [place], [address], 07/30/2023 17:16:34 magnesium , serum or plasma 2022 023 [facility], [address] [place], [address], 07/30/2023 17:52:28 CMP, serum or plasma 2022 023 [facility], [address] [place], [address], 07/30/2023 17:52:28 unlisted lab - lyme dis total Ab w/ reflex 2022 023 [facility], [address] [place], [address], 07/31/2023 12:08:24 Referral colon & rectal surgeon referral - enlarging external hemorrhoi dTemo Oropeza/[facility] area please. 2024 025 HAO Jacobsen MD, [address] [place] [address] [place], [address], 09/07/2025 10:51:46 urologist referral - please see consult note for urologist . needs to get back in with them as urinary issues are still happening . 2023 024 [facility], [address], [place], [address], 11/19/2024 05:01:01 gastroent erologist referral - colonosco py [facility] [address] [place], [address], 07/18/2025 10:35:36 Procedures None recorded. Surgeries None recorded. Imaging LDCT, chest, for lung cancer screening 2024 025 [facility] (Central Scheduling), [address] [place], [address], 05/25/2025 21:26:52 LDCT, chest, for lung cancer screening 2023 024 [facility] (Central Scheduling), [address] [place], [address], 03/10/2024 14:18:33 Medication Orders tamsulosi n 0.4 mg capsule 2024 025 [facility]/Pharmacy #[id number], [address] [place], [address], 01/29/2025 13:58:41 lisinopri l 5 mg tablet 2023 024 [email or web address] [address] [facility]/Pharmacy #1111, [address] [place], [address], 06/22/2025 12:41:10 lisinopri l 5 mg tablet 2023 024 [email or web address] [address] [facility]/Pharmacy #1111, [address] [place], [address], 06/22/2025 12:41:10 Patient TargetsNo targets recorded. Patient Instructions Encounter Date Encounter Id Patient Instructions Last Modified By Organization Details Last Modified Time 07/30/2023 [id number] learning about stress [email or web address] Not available 07/30/2023 09:33:40 Reason for Referral Back Grinder Referral for Screening for malignant neoplasm of colon colonoscopy Referring Physician: [facility], Encounter Date: 01/27/2024 Urologist Referral for Disor felisha of prostate please see 02/05/2021 consult note for urologist. needs to get back in with them as urinary issues are still happening. Referring Physician: [facility], Encounter Date: 01/27/2024 Colon & Rectal Surgeon Refer ral for External hemorrhoids enlarging external hemorrhoid. [facility] please. Referring Physician: Raoul [facility], Encounter Date: 06/22/2025 Results Created Date Observation Date Name Description Value Unit Range Abnormal Flag Note LastModifiedBy Organization Detail LastModifiedTime 07/30/2007/30/2023 UA AND RFLX MICRO SCOPI C color urine Yellow yellow Not Available [facility] [address] [place], [address], 07/30/2023 17:09:52 07/30/2007/30/2023 UA AND RFLX MICRO SCOPI C appearance urine Clear clear Not Available [facility] [address] [place], [address], 07/30/2023 17:09:52 07/30/2007/30/2023 UA AND RFLX MICRO SCOPI C specific gravity urine 1.025 1.001- 1.035 Not Available [facility] [address] [place] [address], [address], 07/30/2023 17:09:52 07/30/2007/30/2023 UA AND RFLX MICRO SCOPI C glucose urine UA Negati ve negati ve Not Available [facility] [address] [place], [address], 07/30/2023 17:09:52 07/30/2007/30/2023 UA AND RFLX MICRO SCOPI C bilirubin urine Negati ve negati ve Not Available [facility] [address] [place], [address], 07/30/2023 17:09:52 07/30/2007/30/2023 UA AND RFLX MICRO SCOPI C ketones urine Negati ve negati ve Not Available [facility] [address] [place], [address], 07/30/2023 17:09:52 07/30/20 23 07/30/2023 UA AND RFLX MICRO SCOPI C urine hemoglobin Negati ve negati ve Not Available [facility] [address] [place], [address], 07/30/2023 17:09:52 07/30/20 23 07/30/2023 UA AND RFLX MICRO SCOPI C pH urine 6.0 5.0-8. 0 Not Available [facility] [address] [place] [address], [address], 07/30/2023 17:09:52 07/30/20 23 07/30/2023 UA AND RFLX MICRO SCOPI C protein urine Negati ve mg/dL negati ve Not Available [facility] [address] [place], [address], 07/30/2023 17:09:52 07/30/2007/30/2023 UA AND RFLX MICRO SCOPI C urobilinogen urine 0.2 mg/dL 0.2-1. 0 Not Available [facility] [address] [place] [address], [address], 07/30/2023 17:09:52 07/30/20 23 07/30/2023 UA AND RFLX MICRO SCOPI C nitrite urine Negati ve negati ve Not Available [facility] [address] [place] [address], [address], 07/30/2023 17:09:52 07/30/20 23 07/30/2023 UA AND RFLX MICRO SCOPI C leukocyte esterase urine Negati ve negati ve Not Available [facility] [address] [place] [address], [address], 07/30/2023 17:09:52 07/30/20 23 07/30/2023 COMPL ETE BLOOD COUNT AUTO DIFF white blood count 10.04 K/uL 3.5-11 .0 normal Not Available [facility] [address] [place] [address], [address], 07/30/2023 17:16:34 07/30/20 23 07/30/2023 COMPL ETE BLOOD COUNT AUTO DIFF red blood count 5.48 M/uL 3.90-5 .50 normal Not Available [facility] [address] [place] [address], [address], 07/30/2023 17:16:34 07/30/20 23 07/30/2023 COMPL ETE BLOOD COUNT AUTO DIFF hemoglobin 16.9 g/dL 14.0-1 8.0 normal Not Available [facility] [address] [place] [address], [address], 07/30/2023 17:16:34 07/30/20 23 07/30/2023 COMPL ETE BLOOD COUNT AUTO DIFF hematocrit 50.8 % 42.0-5 4.0 normal Not Available [facility] [address] [place] [address], [address], 07/30/2023 17:16:34 07/30/2007/30/2023 COMPL ETE BLOOD COUNT AUTO DIFF mean corpuscular volume 92.7 fL 80.0-1 00.0 normal Not Available [facility] [address] [place] [address], [address], 07/30/2023 17:16:34 07/30/20 23 07/30/2023 COMPL ETE BLOOD COUNT AUTO DIFF mean corpuscular hemoglobin 30.8 pg 25.4-3 4.6 normal Not Available [facility] [address] [place] [address], [address], 07/30/2023 17:16:34 07/30/20 23 07/30/2023 COMPL ETE BLOOD COUNT AUTO DIFF mean corpuscular HGB conc 33.3 g/dL 31.0-3 7.0 normal Not Available [facility] [address] [place] [address], [address], 07/30/2023 17:16:34 07/30/20 23 07/30/2023 COMPL ETE BLOOD COUNT AUTO DIFF red cell distribution width 12.7 % 11.5-1 4.5 normal Not Available [facility] [address] [place] [address], [address], 07/30/2023 17:16:34 07/30/20 23 07/30/2023 COMPL ETE BLOOD COUNT AUTO DIFF platelet count 316 K/uL 150-40 0 normal Not Available [facility] [address] [place] [address], [address], 07/30/2023 17:16:34 07/30/20 23 07/30/2023 COMPL ETE BLOOD COUNT AUTO DIFF neutrophils percent auto 77.2 % 35.0-6 6.0 high Not Available [facility] [address] [place] [address], [address], 07/30/2023 17:16:34 07/30/20 23 07/30/2023 COMPL ETE BLOOD COUNT AUTO DIFF imm gran pct auto 0.4 % 0.0-0. 6 normal Not Available [facility] [address] [place] [address], [address], 07/30/2023 17:16:34 07/30/20 23 07/30/2023 COMPL ETE BLOOD COUNT AUTO DIFF lymphocytes percent auto 11.7 % 25.0-4 5.0 low Not Available [facility] [address] [place] [address], [address], 07/30/2023 17:16:34 07/30/20 23 07/30/2023 COMPL ETE BLOOD COUNT AUTO DIFF monocytes percent auto 7.1 % 0.0-13 .0 normal Not Available [facility] [address] [place] [address], [address], 07/30/2023 17:16:34 07/30/20 23 07/30/2023 COMPL ETE BLOOD COUNT AUTO DIFF eosinophils percent auto 3.2 % 0.0-8. 0 normal Not Available [facility] [address] [place] [address], [address], 07/30/2023 17:16:34 07/30/20 23 07/30/2023 COMPL ETE BLOOD COUNT AUTO DIFF basophils percent auto 0.4 % 0.0-1. 0 normal Not Available [facility] [address] [place] [address], [address], 07/30/2023 17:16:34 07/30/20 23 07/30/2023 COMPL ETE BLOOD COUNT AUTO DIFF neutrophils absolute auto 7.76 K/uL 1.5-7. 5 high Cauti on: Inter preta tion of ANC resul ts witho ut inclu aynni of the WBC diffe renti al resul ts may lead to thong eous diagn osis; for examp le, raoul ng myelo proli ferat drew or lymph oprol ifera tive disor ders. Not Available [facility] [address] [place], [address], 07/30/2023 17:16:34 07/30/20 23 07/30/2023 COMPL ETE BLOOD COUNT AUTO DIFF imm gran abs auto 0.04 K/uL 0.00-0 .09 normal Not Available [facility] [address] [place], [address], 07/30/2023 17:16:34 07/30/20 23 07/30/2023 COMPL ETE BLOOD COUNT AUTO DIFF lymphocytes absolute auto 1.17 K/uL 0.8-4. 8 normal Not Available [facility] [address] [place], [address], 07/30/2023 17:16:34 07/30/20 23 07/30/2023 COMPL ETE
--- OUTSIDE RECORDS SUMMARY | 2025-10-10 19:25 | XMS_ITS | Clinical Summary ---
Author Organization [facility] lin Address [address] [place] [address] Care Team Providers Care [employer] Name Role Phone Pcp, No Primary Care Provider Social History Tobacco Use Types Packs/Day Years Used Date Smoking Tobacco: Never Assessed Sex and Gender Information Value Date Recorded Sex Assigned at Not on file Legal Sex Male 11:02 AM EDT Gender Identity Not on file Sexual Orientation Not on file Plan of Treatment Not on file Medical Devices Not on file Care Teams [employer] Relationship Specialty Start Date End Date PcpBillie PCP - General Family Medicine 10/21/20
--- OUTSIDE RECORDS SUMMARY | 2025-10-10 19:25 | XMS_ITS | Data Portability ---
[place] [facility] [place] [address] [place] [address] Care Team Providers Care Manager Valuation Name Role Phone MARCO MCLAIN Primary Care Provider [phone] MARCO MCLAIN Referring Provider Assessment Encounter Date Assessment Date Assessment LastModified by Organization Details LastModified Time 12/19/2013 12/19/2013 This is a 53yo white male with past medical history of anxiety, depression, BPH, and cluster headaches, presenting for evaluation for screening for colorectal cancer. Pt is at average risk for development of colorectal cancer. I advised the patient to stop any ASA,ibuprofen, and supplements at least 1 week beforethe procedure. The Miralax prep was discussed in detail. The risks, benefits, and alternatives to colonoscopy (fecaloccultsto ol cards, barium enema, and flexible sigmoidoscopy)w ere explained. Patient reports a history of frequnt nausea that responded to PPI therapy. He now takes promethazine when he feels nauseated. Patient should continue this medication, since it is effective for his intermittent nausea. Plan: 1. Schedule screening colonoscopy. 2. Stop NSAIDs, ASA, and supplements. 3. Miralax prep per conversation and handout. 4. Continue promethazine for occasional nausea. [email or web address] Not available 12/22/2013 18:03:04 Plan of Treatment Reminders Order Date Submit Date Provider Last Modified By Organization Details Last Modified Time Details Appointments None recorded. Lab urinalysis , microscopi c 2018 019 [email or web address] [facility], [address] , [place], [address], 9 08:18:05 urinalysis , dipstick 2018 019 [facility], [address] , [address], [place], [address], 9 15:07:18 Referral None recorded. Procedures colonoscop y screening (PROC) - Patient is cleared for colonoscop y. 2013 014 NATALIE Not available 4 15:43:15 Surgeries None recorded. Imaging US, bladder 2018 019 [facility], [address] [facility], [facility] [address], [place], [address], 9 15:07:18 Medication Orders terazosin 2 mg capsule 2018 019 [facility], [address] [place] [address], [address], 9 15:07:23 Patient TargetsNo targets recorded. Patient InstructionsNo instructions recorded. Reason for Referral None Reported. Results Created Date Observation Date Name Description Value Unit Range Abnormal Flag Note LastModifiedBy Organization Detail LastModifiedTime 12/20/1912/20/2018 US, bladd er residual 110 mL Not Available [place] [address], [place], [address], 12/20/2018 14:20:20 12/20/19 19 12/20/2018 urina lysis , dipst ick Specific [place] 1.020 Not Available [facility] [address] [facility] [address], [place], [address], 12/20/2018 14:20:12 12/20/19 19 12/20/2018 urina lysis , dipst ick ph 6.0 Not Available [address], [place], [address], 12/20/2018 14:20:12 12/20/19 19 12/20/2018 urina lysis , dipst ick Leukocytes Neg Not Available [address] [place] [address], [place], [address], 12/20/2018 14:20:12 12/20/19 19 12/20/2018 urina lysis , dipst ick Nitrate Neg Not Available [address], [place], [address], 12/20/2018 14:20:12 12/20/19 19 12/20/2018 urina lysis , dipst ick Protein Neg Not Available [address], [place], [address], 12/20/2018 14:20:12 12/20/19 19 12/20/2018 urina lysis , dipst ick Glucose Normal Not Available [address], [place], [address], 12/20/2018 14:20:12 12/20/19 19 12/20/2018 urina lysis , dipst ick Ketone Normal Not Available [address] [place] [address], [place], [address], 12/20/2018 14:20:12 12/20/19 19 12/20/2018 urina lysis , dipst ick UBG Normal Not Available [address] [place] [address], [place], [address], 12/20/2018 14:20:12 12/20/19 19 12/20/2018 urina lysis , dipst ick Bilirubin Negati ve Not Available [address] [place] [address], [place], [address], 12/20/2018 14:20:12 12/20/19 19 12/20/2018 urina lysis , dipst ick Blood 50 Not Available [address], [place], [address], 12/20/2018 14:20:12 04/11/20 14 04/11/2014 patho logy, surgi kamran surgical ----- ----- ----- ----- ----- ----- ----- ----- ----- ----- ----- ----- ----- ----- ----- ----- ----- ----- -- patie nt: luis kiki moise 721 LOC: endo U #: [id number] age/s x: 53/M room: re04/[address]: juan bass,sr hever harris : 11/26 bed: dis: statu s: dep ref proce dure/ opera tion perfo rmed: colon oscop y spec #: [id number] recd: 04/11- 126 statu s: sout req #: [id number] tim: 04/[address]: sr hever ramirez md enter ed: 04/11- 127 sp type: surgi kamran othr dr: yoly mclain do tissu e:col on ----- ----- ----- ----- ----- ----- ----- ----- ----- ----- ----- ----- ----- ----- ----- ----- ----- ----- -- final diagn osis A. sigmo id: - colon ic mucos a, no diagn ostic abnor malit ies. - multi ple level s exami rohan. B. desce nding colon : - tubul ar adeno ma. C. desce nding and trans verse colon : - fragm ents of tubul ar adeno ma and unrem arkab le colon ic mucos a. gross exami natio n A. recei pro in forma andreas label ed grayd on sharp e, 11-26 and biop sy polyp sigmo id . IT consi sts of a pale pink/ yello w/chand fragm ent of tissu e measu ring 2 x 1 x 1 mm. AP, one casse tte. B. recei pro in forma andreas label ed grayd on sharp e, 11-26 and biop sy desce nding colon . IT consi sts of a fragm ent of chand tissu e measu ring 5 x 3 x 3 mm. AP, one casse tte. C. recei pro in forma andreas label ed grayd on sharp e, 11-26 and biop sy two polyp s desce nding and trans verse . IT consi sts of multi ple 1-3 mm fragm ents of chand tissu e. AP, one casse tte. (dL) 04-11 fitz d __ esthela ozuna md 04/12 1351 ----- ----- ----- ----- ----- ----- ----- ----- ----- ----- ----- ----- ----- ----- ----- ----- ----- ----- -- Not Available [facility] [address] [place] [address], [address], 04/12/2014 13:52:11 12/20/1912/20/2018 urina lysis , dipst ick color YELLOW yellow normal Not Available [facility] [address] [place] [address], [address], 12/20/2018 17:06:52 12/20/1912/20/2018 urina lysis , dipst ick appearance CLEAR clear normal Not Available [facility] [address] [place] [address], [address], 12/20/2018 17:06:52 12/20/1912/20/2018 urina lysis , dipst ick specific gravit 1.020 1.001- 1.035 normal Not Available [facility] [address] [place] [address], [address], 12/20/2018 17:06:52 12/20/19 19 12/20/2018 urina lysis , dipst ick urine glucose NEGATI VE neg normal Not Available [facility] [address] [place] [address], [address], 12/20/2018 17:06:52 12/20/1912/20/2018 urina lysis , dipst ick urine bilirubin NEGATI VE neg normal Not Available [facility] [address] [place] [address], [address], 12/20/2018 17:06:52 12/20/1912/20/2018 urina lysis , dipst ick urine ketone TRACE neg high Not Available [facility] [address] [place] [address], [address], 12/20/2018 17:06:52 12/20/1912/20/2018 urina lysis , dipst ick urine HGB TRACE- INTACT neg high Not Available [facility] [address] [place] [address], [address], 12/20/2018 17:06:52 12/20/1912/20/2018 urina lysis , dipst ick urine pH 6.0 5.0-8. 0 normal Not Available [facility] [address] [place] [address], [address], 12/20/2018 17:06:52 12/20/1912/20/2018 urina lysis , dipst ick urine protein NEGATI VE mg/dL neg normal Not Available [facility] [address] [place] [address], [address], 12/20/2018 17:06:52 12/20/1912/20/2018 urina lysis , dipst ick urobilinogen 0.2 erlic h 0.2-1. 0 normal Not Available [facility] [address] [place] [address], [address], 12/20/2018 17:06:52 12/20/1912/20/2018 urina lysis , dipst ick nitrite NEGATI VE neg normal Not Available [facility] [address] [place] [address], [address], 12/20/2018 17:06:52 12/20/19 19 12/20/2018 urina lysis , dipst ick leukocyte chalo NEGATI VE neg normal Not Available [facility] [address] [place] [address], [address], 12/20/2018 17:06:52 12/20/19 19 12/20/2018 leuko cyte chalo ase, quant , urine results Not Available [facility] [address] [place] [address], [address], 12/20/2018 17:06:52 12/20/19 19 12/20/2018 urina lysis , micro scopi c micro exam normal RARE BACTE ADAMS 0-4 WBC 5-10 RBC Not Available [facility] [address] [place] [address], [address], 12/20/2018 17:06:53 07/17/20 19 07/17/2019 PSA, total + free, serum or plasm a PSA, total DX 7.22 NG/mL 0.0-4. 0 high Not Available [facility] [address] [place] [address], [address], 07/17/2019 12:26:23 07/17/20 19 07/17/2019 PSA, total + free, serum or plasm a free PSA 0.549 NG/mL normal Not Available [facility] [address] [place] [address], [address], 07/17/2019 12:26:23 07/17/20 19 07/17/2019 PSA, total + free, serum or plasm a % free PSA 8 % normal There is an incre ased proba bilit y of detec ting prost ate cance r as the PSA level incre ases. There is a 12- 22% risk of Prost ate cance r in men whose Total PSA is < 4.0 ng/ml . The proba bilit y of findi ng Prost ate cance r with a total PSA in the han zone of 4.0- 10.0 ng/ml incre ases with incre asing age and with decre asing Free PSA/T otal PSA ratio . Total PSA Free PSA Estim ated % (X) ng/ml % Proba bilit y of CA ----- ----- ----- ----- ----- ----- ----- ----- ----- ----- ----- ---- <4 (*) (*) 4.1- 10 <10 57 11-18 34 19-25 24 >25 12 >10 (+) (+) ----- ----- ----- ----- ----- ----- ----- ----- ----- ----- ----- ---- (X): These estim ates vary great ly with age, ethni city, famil y histo ry and MARTELL resul ts. (*): The diagn ostic usefu lness of % free PSA has not been estab lishe d in patie nts with Total PSA below 4 ng/ml . (+): In men with PSA value s above 10 ng/ml , prost ate cance r risk is deter mined by Total PSA alone . When the PSA alivia ntrat ion is >10 ng/ml the proba bilit y of cance r is high and prost ate biops y is gener ally recom bhavik d. This test was perfo rmed using the Candelario elect ro - chemi lumin escen ce marylino d. Value s obtai rohan from diffe rent assay metho ds canno t be used inter arellano eably . PSA level s regar dless of value , shoul d not be inter prete d as absol missael evide nce of the prese nce or absen ce of disea se. Not Available [facility] [address] [place], [address], 07/17/2019 12:26:23 07/17/2007/19/2019 cultu re, urine urine culture normal ENTER OCOCC US FAECA LIS COLON Y COUNT : COLON Y COUNT : GREAT ER THAN 100,0 00 COL/M L ORGAN ISM 1: ENTER OCOCC US FAECA LIS ENTER OCOCC US FAECA LIS: REACT ION Not Available [facility] [address] [place], [address], 07/19/2019 08:39:01 07/17/20 19 07/19/2019 cultu re, urine urine culture susceptib le AMPIC ILLIN <=2 S CIPRO FLOXA ALAYNA 1 S LEVOF LOXAC IN 2 S LINEZ OLID (ZYVO X) 2 S NITRO FURAN TOIN <=16 S PENIC ILLIN 4 S Not Available [facility] [address] [place], [address], 07/19/2019 08:39:01 07/17/20 19 07/19/2019 cultu re, urine urine culture resistant QUINU PRIST IN/DA LFO (SYNE RCID) 8 R TETRA CYCLI NE >=16 R Not Available [facility] [address] [place], [address], 07/19/2019 08:39:01 07/17/20 19 07/19/2019 cultu re, urine urine culture susceptib le TIGEC YCLIN E <=0.1 2 S VANCO MYCIN 1 S Not Available [facility] [address] [place], [address], 07/19/2019 08:39:01 12/26/19 14 06/14/2003 imagi ng/di agnos tic resul t No observ ation record ed. BARCODE Not Available 2013 12:06:51 12/26/19 14 04/30/2003 imagi ng/di agnos tic resul t No observ ation record ed. BARCODE Not Available 2013 12:06:51 Result Notes None recorded. Problems Name Problem SNOMED Code Status Onset Date Resolution Date Notes Provider Name and Address Organization Details Recorded Time Nausea [id number] Active Johnathan manzo [place] - [facility] 12/22/2013 18:03:04 Notes:Some problems listed i n Document: #[id number] could not be added to this patient's chart. Please review this document and add these problems to the patient's chart manually as needed. Problem Notes None recorded. Procedures Surgical History Date Name Laterality Status Provider Name and Address Organization Details Recorded Time 12/20/19 19 IPSS - International Prostate Symptom Score completed Tuyet Odomas [facility] 12/20/2018 14:20:54 09/12/20 03 upper GI endoscopy w/biopsy completed Johnathan Meléndez [facility] 12/25/2013 09:21:35 dental extraction completed Johnathan Meléndez [facility] 12/22/2013 18:03:04 Imaging Results None recorded. Procedure Notes None recorded. Medical Equipment None Reported. Allergies Allergen ID Allergen Name Allergen Category Reaction Reaction Severity Criticality Documentation Date Start Date Code Code System Note Provider Name and Address Organization Details Recorded Time 384285 adhesive environme nt,medica tion rash Not available Not available 12/22/2013 Johnathan manzo [facility] 4 18:03:04 Medications Name Sig Start Date Stop Date Status Note LastModified by Organization Details LastModified Time terazosin 5 mg capsule Take 1 capsule by mouth once daily active Not Available Not Available No t Available ciprofloxaci n 500 mg tablet Take 1 tablet every 12 hours by oral route for 10 days. active Not Available Not Available No t Available terazosin 2 mg capsule Take 1 capsule every day by oral route for 90 days. 2018 active Not Available Not Available Not Avai lable promethazine 25 mg tablet PRN active Not Available Not Available Not Available levofloxacin 500 mg tablet active Not Available Not Available Not Available finasteride 5 mg tablet active Not Available Not Available Not Available diazepam 5 mg tablet PRN active Not Available Not Available No t Available nitrofuranto in monohydrate/ macrocrystal s 100 mg capsule active Not Available Not Available Not Available duloxetine 30 mg capsule,enma yed release 12/20 completed Not Available Not Available Not Available duloxetine 60 mg capsule,enma yed release active Not Available Not Available Not Available finasteride 12/20 completed Not Available Not Available Not Available citalopram 12/20 completed Not Available Not Available Not Available diazepam PRN 12/20 completed Not Available Not Available Not Available promethazine PRN 12/20 completed Not Available Not Available Not Available Wellbutrin 12/20 completed Not Available Not Available Not Available Vitals Date Recorded Body height Body weight Body mass index (BMI) Heart rate Body temperature Systolic And Diastolic Provider Name and Address Organization Details Last Updated DateTime 4 172.72 cm 11577.3 7758 g 20.4 kg/m2 98 /min 97.8 [degF] 135/78 mm[Hg] Magda Martin [facility] 4 14:38:53 Date Recorded Body height Body mass index (BMI) Body weight Body temperature Systolic And Diastolic Provider Name and Address Organization Details Last Updated DateTime 12/20/2018 172.72 cm 19.8 kg/m2 40042.0 1 g 97.8 [degF] 138/82 mm[Hg] Sheila Kulkarni [facility] 9 14:37:55 Social History Question Answer Notes LastModified by [employer] Details LastModified Time Tobacco Smoking Status Current Every Day Smoker started in 1983 Johnathan manzo [facility] 12/22/2013 18:03:04 Special Diet No Information not available 12/20/2018 Illicit Drugs No [email or web address] Information not available 12/22/2013 Marital Status Information not available 12/20/2018 What Was The Date Of Your Most Recent Tobacco Screening? 12/20/2018 Information not available 05/18/2019 How Much Tobacco Do You Smoke? 1 PPD [email or web address] Information not available 12/22/2013 Sex: Unknown Functional Status Question Answer Note LastModified by [employer] Details LastModified Time What is your level of alcohol consumption? 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 Family History Relationship Description Onset Age of this Age Resolved Age Notes LastModified by Organization Details LastModified Time Maternal Aunt Diabetes mellitus Not available 2018 14:22:57 Paternal Grandfather Malignant neoplastic disease Not available 2018 14:23:27 Notes:No family history of c olon polyps or colorectal cancer. Medical History Condition Response diabetes N cancer N HIV or AIDS N arthritis N heart disease N metal implants N anesthesia allergy/complications N lung disease N asthma Y glaucoma N depression Y high blood pressure N GERD / reflux Y other N CVA/stroke N thyroid disease or other endocrine probl ems N nausea/vomiting Y heartburn N high cholesterol N Past Encounters Encounter ID Performer Location Encounter Start Date Encounter Closed Date Diagnosis/Indication Diagnosis SNOMED-CT Code Diagnosis ICD10 Code Diagnosis IMO Codes Diagnosis Note [id number] Johnathan Meléndez NP [facility] [address] [place] [address] 12/19/2013 14:24:53 12/23/2013 15:47:20 Nausea 808785593 Screening for malignant neoplasm of colon 717721214 [id number] Juan Chu MD [facility] [address] [place] [address] 12/20/2018 14:16:57 12/20/2018 15:03:42 Incomplete emptying of urinary bladder 939859800 R39.14 He has a moderate residual. I'll recheck at his next visit. Benign pro static hyperplasia with outflow obstruction 238935380 N40.1 We discussed treatment options and I'll increase his terazosin to 7 mg daily. He wishes to stop the finasterid e because he wishes to donate blood. I told him the finasterid e is probably helping marginally and stopping it shouldn't have a significan t effect. Prostate s pecific antigen above reference range 866452703 R97.20 A psa of 3.3 in a patient on finasterid e is, when corrected, 6.6. I told him my concern and I'll recheck a PSA in 6 months Microscopic hematuria 19 5816720 R31.21 Cl has trace heme on his dip today. I sent the sample for micro. We discussed the possible causes of microscopi c hematuria including cancer. Health Concerns Section Related Observation LastModified by Organization Detai ls LastModified Time None Recorded Concern Status LastModified by Organization Details LastModified Time None Recorded Advance Directives Directive None Recorded Payers Insurance Date Sequence Insurance Name Policy Number Policy Bucio Covered Member ID Bucio Member ID Guarantor Name 10/21/2023 1 [facility] Cl Pretty [id number] Cl Pretty 10/21/2023 1 [place] [facility] PL[facility] Cl Pretty [id number] Cl Pretty 10/21/2023 1 [employer] (POS) [id number] Cl Pretty [id number] Cl Pretty Notes Date Note Type Note Provider Name and Address Organization Details Recorded Time 12/19/2013 text/html This is a 53yo white male with past medical history of anxiety, depression, BPH, and cluster headaches, presenting for evaluation for screening for colorectal cancer. Patient has no family history of colon polyps and CRC. Patient reports that 10 years ago, he started experiencing nausea in the morning, and it would often last throughout the day. He started taking a PPI at the time, which was effective. He states that now the nausea is intermittent. When he feels nauseated, he takes promethazine, which resolves his nausea. Patient denies dysphagia, heartburn, vomiting, diarrhea, constipation, abdominal pain, hemorrhoids, rectal bleeding, hematochezia, melena, or change in appetite or weight. Jesus Tan MD [address] [place] [address], [phone], [facility] 12/23/2013 10:38:32 12/20/2018 text/html BPHReported by PatientHPIFor severity, patient reportsipss 33/35andbother score 5/6. For onset/timing, patient reportsall the timeandonset of symptoms >5 yrs. For location, patient reportsprostate. For alleviating factors, patient reportsalpha blockers (terazosin 2 mg)and5 ar inhibitors (finasteride 5 mg). For aggravating factors, patient reportsnone. For associated symptoms, patient reportsno dysuria,no hematuria,no pneumaturia,no bladder pain,no abdominal pain, andno flank pain.He is a 1ppd smoker for almost 30 years. No family h/o prostate cancer PSA= 3.3 while on finasteride. Juan Chu MD [address] [place] [address], [phone], [facility] 12/20/2018 15:11:02
== END 2025-10-10 14:57 | disposition home or self-care (01) ==
LOC: HO.HGS 14:30
PROVIDERS: Visit Provider Surgery
DX: K64.4 Residual hemorrhoidal skin tags (principal); K64.8 Other hemorrhoids
CPT/HCPCS: 46600; 99203

== ENCOUNTER → 2025-10-10 14:29 | Outpatient (BNVA) | payer OTHER, SELFPAY | PROVIDERS: Visit Provider Surgery | DX: K64.4 Residual hemorrhoidal skin tags (principal); K64.8 Other hemorrhoids | CPT/HCPCS: 46600 ==